=== PATIENT | female | born 1995 | race Caucasian/White ===

== ENCOUNTER 2022-11-01 14:06 | Outpatient (CLI) | payer BC, SELFPAY ==
[2022-11-01 17:42] LABS: Glucose* 101 mg/dL (60-115)
[2022-11-01 18:13] LABS: Thyroid Stimulating Hormone* 0.964 uIU/mL (0.270-4.20)
[2022-11-03 12:33] LABS: Prolactin 10.4 ng/mL (2.8-29.2)
[2022-11-04 07:35] LABS: 17-Hydroxyprogesterone HPLC 77.92 ng/dL (<=206.00)
[2022-11-08 07:09] LABS: Sex Hormone Binding Globulin 39 nmol/L (25-122); Testosterone Bioavailable 21.7 ng/dL (2.2-20.6); Testosterone, LC-MS/MS 52 ng/dL (9-55)
== END 2022-11-01 14:07 | disposition home or self-care (01) ==
PROVIDERS: Visit Provider Physician Assistant
DX: Z01.419 Encounter for gynecological examination (general) (routine) without abnormal findings (principal); N92.6 Irregular menstruation, unspecified; E66.01 Morbid (severe) obesity due to excess calories
CPT/HCPCS: 82947; 83498; 84146; 84270; 84402; 84403; 84443

== ENCOUNTER 2023-08-20 12:43 | Outpatient (CLI) | payer MEDICAID, SELFPAY ==
--- NOTE | 2023-08-20 13:00 | CRLHL7_ITS ---
For Patients: As a result of the Cures Act, medical imaging exams and procedure reports are released immediately into your electronic medical record. You may view this report before your referring provider. If you have questions, please contact your health care provider. INDICATION: First trimester scan, establish dates. TECHNIQUE: Real-time vega-scale imaging of the pelvis was performed. FINDINGS: Sonographic imaging demonstrates a single living intrauterine gestation. The embryo demonstrates a regular cardiac rate measuring 180 beats per minute. The embryo`s crown-rump length measurement of 2 cm corresponds to a gestational age of 8 weeks 4 days with a sonographic due date of 03/27/2024. There is a normal-appearing yolk sac. IMPRESSION: Normal first trimester OB ultrasound exam. Gestational age calculated at 8 weeks 4 days with a sonographic due date of 03/27/2024 . Dictated by Mima Kaplan MD @ 08/21/2023 6:52:38 AM (Electronically Signed)
== END 2023-08-20 12:44 | disposition home or self-care (01) ==
LOC: US 12:48
PROVIDERS: Visit Provider Registered Nurse
DX: Z34.91 Encounter for supervision of normal pregnancy, unspecified, first trimester (principal); Z3A.09 9 weeks gestation of pregnancy
CPT/HCPCS: 76817; 82565; 82570; 84156; 84450; 84460; 84520; 86703; 86803; 86850; 86900; 86901; 87086; 87340; 87491; 87591

== ENCOUNTER 2023-08-20 14:05 | Outpatient (CLI) | payer MEDICAID, SELFPAY ==
[2023-08-20 17:48] LABS: Chlamydia DNA Amplified* NOT DETECTED (No Detected); GC DNA Amplified* NOT DETECTED (No Detected)
== END 2023-08-20 14:06 | disposition home or self-care (01) ==
PROVIDERS: Visit Provider Registered Nurse
DX: Z34.90 Encounter for supervision of normal pregnancy, unspecified, unspecified trimester (principal)
CPT/HCPCS: 82565; 82570; 84156; 84450; 84460; 84520; 86592; 86703; 86762; 86787; 86803; 86850; 86900; 86901; 87086; 87340; 87491; 87591

== ENCOUNTER 2023-10-24 16:45 | Emergency (ER) | payer BC, SELFPAY ==
[2023-10-24 16:49] VITALS: BP 132/84; PULSE 106; RESP 18; TEMP 37.3; O2SAT 98; BMI 47.0
--- NOTE | 2023-10-24 17:08 | CRLHL7_ITS ---
For Patients: As a result of the Century Cures Act, medical imaging exams and procedure reports are released immediately into your electronic medical record. You may view this report before your referring provider. If you have questions, please contact your health care provider. CLINICAL HISTORY: Fall TECHNIQUE: Real time vega scale imaging of the fetus was performed as well as color Doppler and spectral Doppler analysis of the umbilical artery. FINDINGS: Sonographic imaging demonstrates a single living intrauterine gestation. Fetus demonstrates a regular cardiac rate of 139 beats per minute. Cervical length measures 3.7 cm Fetus has a vertex orientation . The placenta lies posterior without evidence of placenta previa. Amniotic fluid volume appears normal. single deepest vertical pocket: 3.4 cm. Rounded area in the anterior uterus could represent a possible contracture this could be followed up. IMPRESSION: 1. Single live intrauterine gestation. No perigestational hemorrhage seen. Rounded area in the anterior uterus could be due to a contracture. Dictated by Mima Kaplan MD @ 10/24/2023 7:03:56 PM (Electronically Signed)
--- NOTE | 2023-10-24 17:58 | ED.FALL ---
HPI - Fall General Date Seen: 10/24/23 Chief Complaint: Fall/Minor Trauma Stated Complaint: fell on stomach and is Time Seen by Provider: 10/24/23 17:35 Source: patient Mode of arrival: ambulatory Limitations: no limitations History of Present Illness HPI Narrative: Patient is a 28-year-old female presented to emergency department after a fall. She is at 18 weeks . She states she tripped over dog and fell onto brick ground. She 9 in her knees and her abdomen. Since then she has been having some mild abdominal pain and mild bilateral knee pain. She has been able walk. She has not had any abdominal bleeding but was concerned about the came in to be evaluated. Denies any other injuries. Related Data Home Medications Medication Instructions Recorded Confirmed fluticasone propionate 45 2 puff inhalation BID 11/01/22 10/24/23 mcg-salmeterol 21 mcg/actuation HFA inhaler (Advair HFA) docosahexaenoic acid 200 mg mg PO 08/20/23 10/13/23 capsule ( DHA) albuterol sulfate 90 mcg/actuation 1 inh inhalation ONCE PRN 09/15/23 10/24/23 aerosol inhaler aspirin 81 mg tablet,delayed 81 mg PO QDAY 10/13/23 10/24/23 release (Adult Aspirin Regimen) Allergies Allergy/AdvReac Type Severity Reaction Status Date / Time No Known Drug Allergies Allergy Verified 10/24/23 16:53 Review of Systems Narrative: Negative unless stated in HPI PFSH PFSH Medical History (Updated 10/24/23 @ 18:02 by Tyler Nichols DO) Irregular menstruation, unspecified ?N92.6 - Irregular menstruation, unspecified (ICD-10) Depression ?F32.A - Depression, unspecified (ICD-10) Anxiety ?F41.9 - Anxiety disorder, unspecified (ICD-10) History of abnormal cervical Pap smear ?Z87.42 - Personal history of other diseases of the female genital tract (ICD-10) Surgical History H/O wisdom tooth extraction ?K08.409 - Partial loss of teeth, unspecified cause, unspecified class (ICD-10) Family History Father Stroke High blood pressure Diabetes High cholesterol Family/Other Thyroid disease Family/Other FH: mental illness Mother Alcohol dependence 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 E cigarette use, 1 pack per week. Occasional alcohol use. Denies illicit drug use. No concerns with safety or abuse Smoking Status: Never smoker Do you use any of these nicotine containing products: None Second hand tobacco smoke exposure: No How often do you have a drink containing alcohol: never AUDIT-C Alcohol total score: 0 Non-prescribed substance use: denies use Little interest or pleasure in doing things: several days Feeling down, depressed, or hopeless: several days Exam Narrative: Exam Narrative: Const: Well-nourished, Well-developed, in mild distress Eyes: PERRL, no conjunctival injection, and symmetrical lids HENT: Atraumatic external nose and ears. Moist mucous membranes. GI: Nontender/Nondistended, No rebound or guarding. MSK:Extremities w/o deformity, Normal Active ROM. Very mild tenderness to bilateral knees to palpation Skin: Warm, Dry. No rashes or lesions. Neuro: Normal Muscle tone, No focal neurological deficits. Psych: Awake, Alert, & Oriented x3. Appropriate mood and affect. Const: Vital Signs, click to edit/add: Vital Signs - 24 hr 10/24/23 16:49 Temperature 99.2 F Pulse Rate [Pulse Oximeter] 106 H Respiratory Rate 18 Blood Pressure [Ri ght Upper Arm] 132/84 Pulse Oximetry 98 Oxygen Delivery Me thod Room Air Course Vital Signs Vital signs: Initial Vital Signs Temperature 99.2 F 10/24/23 16:49 Temperature Source Temporal Artery Scan 10/24/23 16:49 Pulse Rate 106 H 10/24/23 16:49 Respiratory Rate 18 10/24/23 16:49 Blood Pressure 132/84 10/24/23 16:49 Blood Pressure Mean 100 10/24/23 16:49 Blood Pressure Position Sitting 10/24/23 16:49 Pulse Oximetry 98 10/24/23 16:49 Oxygen Delivery Method Room Air 10/24/23 16:49 Vital Signs Temperature 99.2 F 10/24/23 16:49 Pulse Rate 106 H 10/24/23 16:49 Respiratory Rate 18 10/24/23 16:49 Blood Pressure 132/84 10/24/23 16:49 Pulse Oximetry 98 10/24/23 16:49 Oxygen Delivery Method Room Air 10/24/23 16:49 Temperature 99.2 F 10/24/23 16:49 Pulse Rate 106 H 10/24/23 16:49 Respiratory Rate 18 10/24/23 16:49 Blood Pressure 132/84 10/24/23 16:49 Pulse Oximetry 98 10/24/23 16:49 Oxygen Delivery Method Room Air 10/24/23 16:49 MDM - Fall MDM Narrative Medical decision making narrative: Patient is a 28-year-old female presenting emergency department after a fall. She was concerned about the fetus for she came to be evaluated. States that her knee pain is very mild and does not feel like she needs imaging for it at this time. We did do an ultrasound preliminary report shows no concerning abnormalities. A spasm was seen right for the patient's pain is. We spoke to OB and they state they do not do NST before 20 weeks gestation. Patient is otherwise doing well I spoke to evaluate for the official report versus discharge home and: Her of the results she would like to be discharged home. We will inform her if there are any concerning findings on the ultrasound report. She is agreeable to this plan. Ultrasound results returned after her discharge in a showed no concerning abnormalities. Imaging Data OB ultrasound: Radiologist's impression: 1. Single live intrauterine gestation. No perigestational hemorrhage seen. Rounded area in the anterior uterus could be due to a contracture. Dictated by Mima Kaplan MD @ 10/24/2023 7:03:56 PM Discharge Plan Discharge Clinical Impression: Abdominal pain Qualifiers: Abdominal location: unspecified location Qualified Code(s): R10.9 - Unspecified abdominal pain Patient Disposition: Home, Self-Care Condition: Stable Instructions: Abdominal Pain in (ED) Additional Instructions: If symptoms persist follow-up with your OB Gyne on Friday. We will call you with results of the ultrasound if it shows any concerning abnormalities. Return for new or worsening symptoms Prescriptions: No Action DHA 200 mg capsule PO aspirin [Adult Aspirin Regimen] 81 mg tablet,delayed release (DR/EC) 81 mg PO QDAY Advair HFA 45-21 mcg/actuation HFA aerosol inhaler 2 puff inhalation BID albuterol sulfate 90 mcg/actuation HFA aerosol inhaler 1 inh inhalation ONCE PRN Follow Up/Referrals: Provider,Not a Local [Primary Care Provider] - Stand Alone Forms: PartSimple Info Instructions
== END 2023-10-24 18:12 | disposition home or self-care (01) ==
PROVIDERS: Emergency Provider Student in an Organized Health Care Education/Training Program
DX: O26.891 Other specified pregnancy related conditions, first trimester (principal); R10.9 Unspecified abdominal pain; W18.09XA Striking against other object with subsequent fall, initial encounter
CPT/HCPCS: 76815; 99282; 99283; 99284

== ENCOUNTER 2024-01-05 12:46 | Outpatient (CLI) | payer BC, SELFPAY ==
--- NOTE | 2024-01-05 13:00 | CRLHL7_ITS ---
For Patients: As a result of the Century Cures Act, medical imaging exams and procedure reports are released immediately into your electronic medical record. You may view this report before your referring provider. If you have questions, please contact your health care provider. OB ULTRASOUND JENARO by LMP: 03/24/2024. GA: 28 w, 5 d. INDICATION: BPP and growth for obesity. CERVIX: Not visualized. POSITIONING: Vertex. AMNIOTIC FLUID: 6.2 cm. BIOPHYSICAL PROFILE: Total score: 8/8. Gross body movements: 2. tone: 2. Respiratory activity: 2. Amniotic fluid: 2. (SDP N: Increase 2 x 1 cm) PLACENTA: Technique: Transabdominal. PLACENTA POSITION: Posterior. DOPPLER: heart rate: 137 bpm. Biometry: BPD: 7.5 cm. 30 w, 2 d, 83 percent. HC: 28.2 cm. 30 w, 6 d, 82 percent. AC: 24.3 cm. 28 w, 4 d, 37 percent. FL: 5.2 cm. 27 w, 6 d, 15 percent. FL/AC ratio: 21.6 percent. HC/AC ratio: 1.16. EFW: 1260 g. Weight: 2 lbs, 12 oz. age by this US: 29 w, 3 d. JENARO by this US: 03/19/2024. Percentile by JENARO: 34 percent. IMPRESSION: 1. Single viable intrauterine . 2. Measurements are consistent with dates. 3. Normal biophysical profile score 8/8. Osmin Avila M.D. Body/Diagnostic Radiologist [email or web address] MANDEEP/sanjana allan/Dictated by: Osmin Avila MD @ 01/06/2024 1:23:00 PM (Electronically Signed)
== END 2024-01-05 12:47 | disposition home or self-care (01) ==
LOC: US 12:47
PROVIDERS: Visit Provider Advanced Practice Midwife
DX: O99.213 Obesity complicating pregnancy, third trimester (principal); E66.01 Morbid (severe) obesity due to excess calories; Z68.42 Body mass index [BMI] 45.0-49.9, adult; Z3A.28 28 weeks gestation of pregnancy
CPT/HCPCS: 76816; 76819; 86592

== ENCOUNTER 2024-02-09 16:34 | Outpatient (CLI) | payer BC, SELFPAY ==
[2024-02-09 16:40] VITALS: PULSE 97; O2SAT 97
[2024-02-09 16:45] VITALS: PULSE 99; O2SAT 97
[2024-02-09 16:50] VITALS: PULSE 100; O2SAT 96
[2024-02-09 17:28] VITALS: BP 129/70; PULSE 96
[2024-02-09 17:29] VITALS: RESP 18; TEMP 36.8
--- NOTE | 2024-02-09 18:38 | PC.OBNST ---
NST Note NST Note Start: 02/09/24 17:01 Freq: ONCE Status: Active Protocol: Document 02/09/24 18:32 ALEJANDRA (Rec: 02/09/24 18:38 Barry [id number]) NST Note 1 Para (# of births) 0 EDC 03/24/24 Gestational Age In Weeks & Days 33 Weeks & 5 Days Patient Presented with Complaint(s) of Decreased movement Reactive Yes Appropriate for Gestational Age Yes RN Ruslan Dutton RN Date 02/09/24 Reactive Yes Appropriate for Gestational Age Yes MARILUZ Dukes RN Date 02/09/24 OB NST charge Yes Complete NST Note via Write Note Yes The provider's electronic signature indicates the NST is reactive/appropriate for gestational age. *Note to provider: If an addendum is required, open the patient's chart and click on the note under the Nurse/Allied Health tab.
== END 2024-02-09 17:50 | disposition home or self-care (01) ==
LOC: US 16:37 → OB 16:39
PROVIDERS: Visit Provider Advanced Practice Midwife
DX: O36.8130 Decreased fetal movements, third trimester, not applicable or unspecified (principal); Z3A.33 33 weeks gestation of pregnancy
CPT/HCPCS: 59025; G0463

== ENCOUNTER 2024-02-16 10:17 | Outpatient (CLI) | payer BC, SELFPAY ==
--- NOTE | 2024-02-16 10:30 | US_ITS ---
Patient: LIZZIE WOOD Facility:?[facility] Patient ID:?[id number] Site Patient ID:?[id number]. Site :?[id number] Study:?US-OB Pelvis BPP W GROWTH-02/16/2024 10:56:55 AM Ordering Physician:?PHAM MADDOX Final Report: INDICATION: Third trimester scan, evaluate growth. COMPARISON: 01/05/2024 TECHNIQUE: Real time vega scale imaging of the fetus was performed. FINDINGS: Sonographic imaging demonstrates a single living intrauterine gestation. Fetus demonstrates a regular cardiac rate of 144 beats per minute. Fetus has a vertex position. The placenta lies posteriorly. Amniotic fluid volume appears normal and there is a single deepest vertical pocket: 5.7 cm. The estimated weight is 2754gm which lies at the 75th %. On the prior OB ultrasound exam dated 01/05/2024 the estimated weight was at the 34th%. BPD 94th percentile. HC 76th percentile. AC 79th percentile. FL 53rd percentile. The HC/AC ratio measures 1.03 range (0.92-1.08). IMPRESSION: Sonographic gestational age 36 weeks 1 day and sonographic due date 03/14/2024. Sonographic age 10 days ahead of the clinical age. Estimated weight at 75th percentile. Abdominal circumference 79th percentile. Dictated by Raghavendra Gramajo MD @ 02/16/2024 11:08:37 AM Signed by:?Raghavendra Gramajo MD @02/16/2024 11:08:37 AM (Electronic Signature)
== END 2024-02-16 10:18 | disposition home or self-care (01) ==
LOC: US 10:17
PROVIDERS: Visit Provider Advanced Practice Midwife
DX: Z34.93 Encounter for supervision of normal pregnancy, unspecified, third trimester (principal); Z3A.36 36 weeks gestation of pregnancy
CPT/HCPCS: 76816; 76819

== ENCOUNTER 2024-03-01 15:17 | Outpatient (CLI) | payer BC, SELFPAY ==
[2024-03-02 11:59] LABS: Strep B DNA Probe POSITIVE (Negative)
[2024-03-02 12:03] LABS: Strep B Susceptibility Needed? No
== END 2024-03-01 15:18 | disposition home or self-care (01) ==
LOC: NFLDREF 15:19
PROVIDERS: Visit Provider Advanced Practice Midwife
DX: Z34.03 Encounter for supervision of normal first pregnancy, third trimester (principal)
CPT/HCPCS: 87081; 87653

== ENCOUNTER 2024-03-02 17:10 | Outpatient (CLI) | payer BC, SELFPAY ==
[2024-03-02 17:22] VITALS: PULSE 98; O2SAT 97
[2024-03-02 17:27] VITALS: PULSE 99; O2SAT 98
[2024-03-02 17:32] VITALS: PULSE 99; O2SAT 97
[2024-03-02 17:37] VITALS: PULSE 101; O2SAT 98
[2024-03-02 17:41] VITALS: BP 126/80; PULSE 101; RESP 17; TEMP 36.6
[2024-03-02 18:27] LABS: Appearance Urine Clear (Clear); Bilirubin Urine Negative (Negative); Blood Urine Negative (Negative); Color Urine Yellow (Yellow); Glucose Urine Negative (Negative); Ketones Urine Negative (Negative); Leukocyte Esterase Urine Negative (Negative); Nitrite Urine Negative (Negative); Protein Urine Negative (Negative); Specific Gravity Urine <= 1.005 (1.000-1.030); Urobilinogen Urine 0.2 (0.2-1.0); pH Urine 6.5 (5.0-8.5)
--- NOTE | 2024-03-02 19:32 | PC.OBNST ---
NST Note NST Note Start: 03/02/24 17:17 Freq: ONCE Status: Active Protocol: Document 03/02/24 19:30 AVL (Rec: 03/02/24 19:31 AVL [id number]) NST Note 1 Para (# of births) 0 EDC 03/24/24 Gestational Age In Weeks & Days 36 Weeks & 6 Days Patient Presented with Complaint(s) of Contractions/cramping Reactive Yes Appropriate for Gestational Age Yes MARILUZ Chaudhari Rn Date 03/02/24 Reactive Yes Appropriate for Gestational Age Yes MARILUZ weiner RN Date 03/02/24 OB NST charge Yes Complete NST Note via Write Note Yes The provider's electronic signature indicates the NST is reactive/appropriate for gestational age. *Note to provider: If an addendum is required, open the patient's chart and click on the note under the Nurse/Allied Health tab.
== END 2024-03-02 18:51 | disposition home or self-care (01) ==
LOC: OB OUT 17:15 → OB 17:16
PROVIDERS: Visit Provider Advanced Practice Midwife
DX: Z39.1 Encounter for care and examination of lactating mother (principal)
CPT/HCPCS: 59025; 81003; G0463

== ENCOUNTER 2024-03-08 11:11 | Outpatient (CLI) | payer BC, SELFPAY ==
[2024-03-08] VITALS (17 sets, daily range): BP systolic 113–146; BP diastolic 64–97; PULSE 96–117; RESP 16; TEMP 36.7; O2SAT 97
[2024-03-08 15:22] LABS: Hematocrit 34.4 % (33.0-51.0); Hemoglobin* 11.1 gm/dL (12.0-16.0); Mean Corpuscular HGB Conc 32 gm/dL (32-36); Mean Corpuscular Hemoglobin 28 pg (26-34); Mean Corpuscular Volume 86 fL (80-100); Platelet Count* 328 K/uL (140-440); Red Blood Count 3.98 m/uL (4.00-5.20); White Blood Count* 13.27 K/uL (4.50-11.00)
[2024-03-08 15:27] LABS: Slide Review Reflex No
[2024-03-08 16:04] LABS: Creatinine* 0.5 mg/dL (0.5-1.5); Estimated Glomerular Filt Rate 129 ml/min
[2024-03-08 16:05] LABS: Alanine Aminotransferase* 100 U/L (4-35); Aspartate Amino Transferase* 59 U/L (12-35); Blood Urea Nitrogen* 11 mg/dL (5-24)
[2024-03-08 16:11] LABS: Total Protein Urine 13 mg/dL
--- NOTE | 2024-03-08 16:11 | PC.OBNST ---
NST Note NST Note Start: 03/08/24 11:49 Freq: ONCE Status: Active Protocol: Document 03/08/24 16:08 FJZ (Rec: 03/08/24 16:11 RENUKA [id number]) NST Note 1 Para (# of births) 0 EDC 03/24/24 Gestational Age In Weeks & Days 37 Weeks & 5 Days High Risk Factors High Blood Pressure - Gestational Patient Presented with Complaint(s) of Other Other Complaints Sent from clinic for blood pressure monitoring. Reactive Yes Appropriate for Gestational Age Yes RN Anisha Nguyễn RN Date 03/08/24 Reactive Yes Appropriate for Gestational Age Yes MARILUZ August RN Date 03/08/24 OB NST charge Yes Complete NST Note via Write Note Yes The provider's electronic signature indicates the NST is reactive/appropriate for gestational age. *Note to provider: If an addendum is required, open the patient's chart and click on the note under the Nurse/Allied Health tab.
[2024-03-08 16:12] LABS: Creatinine Urine 96.1 mg/dL
--- NOTE | 2024-04-10 11:25 | PC.OBNST ---
NST Note NST Note Start: 03/08/24 11:49 Freq: ONCE Status: Discharge Protocol: Document 03/08/24 16:08 RENUKA (Rec: 03/08/24 16:11 RENUKA [id number]) NST Note 1 Para (# of births) 0 EDC 03/24/24 Gestational Age In Weeks & Days 37 Weeks & 5 Days High Risk Factors High Blood Pressure - Gestational Patient Presented with Complaint(s) of Other Other Complaints Sent from clinic for blood pressure monitoring. Reactive Yes Appropriate for Gestational Age Yes RN Anisha Nguyễn RN Date 03/08/24 Reactive Yes Appropriate for Gestational Age Yes RN Lizette August RN Date 03/08/24 OB NST charge Yes Complete NST Note via Write Note Yes The provider's electronic signature indicates the NST is reactive/appropriate for gestational age. *Note to provider: If an addendum is required, open the patient's chart and click on the note under the Nurse/Allied Health tab.
== END 2024-03-08 15:30 | disposition home or self-care (01) ==
LOC: OB OUT 11:13 → OB 11:13
PROVIDERS: Visit Provider Advanced Practice Midwife
DX: O13.3 Gestational [pregnancy-induced] hypertension without significant proteinuria, third trimester (principal); Z3A.37 37 weeks gestation of pregnancy
CPT/HCPCS: 36415; 59025; 82565; 82570; 84156; 84450; 84460; 84520; 85027; G0463

== ENCOUNTER 2024-03-08 17:33 | Inpatient (IN) | payer BC, SELFPAY ==
[2024-03-08] VITALS (13 sets, daily range): BP systolic 114–138; BP diastolic 60–86; PULSE 93–120; RESP 18; TEMP 36.6–36.9; O2SAT 92–97; BMI 50.0
[2024-03-08] MEDS: LACTATED RINGERS 1000 ML 1,000 ML 75 ML IV (18:10)
[2024-03-08] MEDS: MAGNESIUM IV 4 GM/100 ML PIGGYBACK IVPB (18:11)
--- NOTE | 2024-03-08 18:25 | P.LDBA_ITS ---
Subjective History of Present Illness Narrative: Hayley is a 28 yo at 37 5/7 weeks gestation being admitted to Labor and Delivery for induction of labor for Gestational Hypertension with severe features based on elevated liver enzymes. Her full history and physical was dictated by Denia Celestin CNM on 03/01/2024. Please see this for details. She was seen in clinic earlier today with elevated BP then sent to Labor and Delivery for blood pressure monitoring. They initially were normotensive but just at 4 hours she had a subsequent elevated blood pressure. Labs were drawn at this time but patient strongly desired to go home and grab her stuff and her partner before IOL. I was agreeable with this plan. Labs resulted after she had already discharged from triage, ALT was 100. She had previous baseline labs drawn at her NOB. Reviewed plan of care and labs with Dr. Zhang. Specific Issues/Plans G 1 Boyfriend: Gómez - has 3 year old son H&P done by Aydee Celestin CNM on 03/01/24 1. Obesity. BMI 46.9. Hemoglobin A1c: 5.4 Recommend nutrition referral. Patient declines Anesthesia referral: ordered MD consult: Seen MD at 20 weeks Level 2 ultrasound: 11/03: completed w/ [facility]: Unremarkable however difficult view of face/heart; limited US follow-up w/ MFM in 4 weeks, EFW 71%ile Follow up level II for missing views 12/08/22, WNL, vtx, no previa, SDP 4.4, 3 vessel cord Early GDM testing between 16 and 20 weeks: scheduled 11/10 - WNL at 87mg/dL Weekly BPP and/or NST starting at 32 weeks ([facility] recommendations) 02/15 EFW 75% BPP 07/08 [facility] recommends Growth US at 28 (34%) and 34 weeks and once weekly testing starting at 34 weeks: planning 2. Elevated blood pressure readings at NOB, cannot exclude possibility of Chronic. Denies history of hypertension. Reports she was very anxious at this visit. No documented history of elevated BP or HTN on previous health documents available. Baseline pre E labs WNL. 3. History of anxiety and PTSD. Stable at 1st OB. States she took multiple medications in the past for anxiety but has been off of all of them for several years. Has an emotional support dog which is very helpful for her. Is not currently seeing a therapist and is not interested in doing so. 4. Asthma. Twice daily Advair Diskus. Rare albuterol use per patient. 5. Headaches, consider Reglan if needed but declines at this time 6. GBS + Recommend antibiotics in labor COVID: Not vaccinated. Recommended. Flu: declines TDAP: declined 32wk Mental Health: 02/01/2027 OB - Problem Based A/P Additional Plan (1) Encounter for induction of labor: Status: Acute (2) Gestational hypertension: Problem details: With severe features Status: Acute (3) 37 weeks gestation of : Status: Acute (4) Morbid obesity with BMI of 45.0-49.9, adult: Status: Acute (5) Asthma: Status: Acute Plan ASSESSMENT:? 28 at 37 5/7 weeks gestation? complicated by:?Prepregnancy BMI 46.9, Elevated BP at NOB with WNL pre-e baseline labs, Hx of Anxiety and PTSD, Asthma, Headaches Labor type: Induced, not yet in labor? Category 1 FHR pattern.?? GHTN with Severe Features? GBS Positive? ? PLAN:? 1. Routine intrapartum cares as ordered. Reviewed IOL and plans for management. Discussed use of Cytotec, Cervidil, cook catheter, or pitocin. She desires to avoid cook if possible. Plan cytotec for tonight. 2. Monitoring per policy, continuous? tracing. Monitor vitals per protocol. Continue to monitor need for medication management of BP. 3. Candidate for analgesia of choice if desired. Patient encouraged to reposition and ambulate to promote physiologic labor and while able 4. Reviewed plan of care and patient status with Dr. Zhang. Based on labs, will initiate magnesium sulfate 4g bolus, 2g per hour with labs every 6 hours. OB and CNM will comanage patient during labor. Dr. Zhang will assume care of the GHTN with severe features and magnesium, CNM will manage labor. Patient is aware that we will both be a part of her team. Post-delivery, CNM care will be relinquished to MD until discharge. 5. GBS prophylaxis initiated for GBS positive status. Will treat with antibiotics per protocol, recommend initiation at onset of active labor or start of pitocin. 6. Anticipate ? Delivery/Labor/Induction Plan Plan: induction Induction method: per misoprostol protocol OB Exam Physical Exam Vital signs: Pulse BP 109 H 130/86 03/08/24 18:01 03/08/24 18:01 Narrative: Vitals Reviewed Constitutional:? Alert and oriented x3 HEENT:? Normocephalic, atraumatic Neck:? Supple Lungs:? Clear to auscultation bilaterally Heart:? Regular rate and rhythm, no murmur, rub or gallop Abdomen:? Soft, nontender, and gravid. Vertex by Tramaine's, confirmed with cervical exam. Extremities:? No edema or erythema Cervix: 1 cm/70%/-1 station/vertex NST: 135 bpm/moderate variability/15x15 accelerations/no decelerations/no contractions Detailed Labor and Delivery Exam Patient Gravid: Yes Cervix position: mid Consistency: medium Fetus (Single) Station: -1 Amniotic Membrane Status: intact
[2024-03-08] MEDS: MAGNESIUM Infusion 40 GM/1,000 ML IV.SOLN IVPB (18:42)
[2024-03-08] MEDS: miSOPROStoL 25 MCG/0.25 TABLET VAGINAL ×2 (19:30→23:34)
[2024-03-08 21:06] LABS: Hematocrit 35.6 % (33.0-51.0); Hemoglobin* 11.2 gm/dL (12.0-16.0); Mean Corpuscular HGB Conc 32 gm/dL (32-36); Mean Corpuscular Hemoglobin 27 pg (26-34); Mean Corpuscular Volume 86 fL (80-100); Platelet Count* 356 K/uL (140-440); Red Blood Count 4.13 m/uL (4.00-5.20); White Blood Count* 14.55 K/uL (4.50-11.00)
[2024-03-08 21:08] LABS: Slide Review Reflex No
[2024-03-08 21:23] LABS: Alanine Aminotransferase* 107 U/L (4-35); Aspartate Amino Transferase* 58 U/L (12-35); Blood Urea Nitrogen* 11 mg/dL (5-24); Creatinine* 0.5 mg/dL (0.5-1.5); Estimated Glomerular Filt Rate 129 ml/min
[2024-03-08] MEDS: hydrOXYzine pamoate 25 MG CAPSULE 100 MG PO (21:23)
[2024-03-08] MEDS: MORPHINE 10 MG/ML inj IM (21:23)
--- NOTE | 2024-03-08 23:37 | P.OBCN_ITS ---
OB - CN: HPI Date of Consult Time Seen by Provider: 19:30 Date Seen: 03/08/24 Patient: [facility] Patient Consult date: 03/08/24 Requesting Physician: Sandy Coe CNM Primary Care Provider: Not a Local Provider Consult Narrative Reason for consult: gestational hypertension (With severe features ) Narrative: The patient is a 28 year old G1 P 0 at 37.5 weeks gestation that was admitted to the Center on 03/08/24 for gestational hypertension with severe features. Denies any persistent headache, vision changes, SOB, right upper quadrant/epigastric pain, or rapidly expanding edema. Active movement. Denies LOF, vaginal bleeding or abnormal vaginal disch arge. Occasional contractions. Discussed with patient the diagnosis her hypertensive diagnosis with severe feature. Her severe features based on elevated LFTs twice the upper limit of normal (AST 59 and ALT 100). MD will monitor and manage her hypertensive diagnosis but TRENT will manage her labor as of now. Patient appreciates this. Plan is for cervical ripening with misoprostol. Physical exam: General: No acute distress Psych: Alert and oriented x4, full affect HEENT: Normocephalic, atraumatic Lungs: Unlabored breathing Abdomen: Gravid. soft, no tenderness, rebound, or guarding. Skin: No lesions or rashes Lower extremities: No edema or erythema Pelvic exam: Deferred Pre-Eclampsia with severe features ? Based on mild range in blood pressure with ALT and AST twice the upper limit of normal ? BPs 110-150/60-90s ? Symptoms : Asymptomatic ? Magnesium: On magnesium sulfate for seizure prophylaxis ? IV antihypertensives: Currently on indicated ? Pre-eclampsia labs on 03/08/2024: Hgb 11.1 Plt 328 Cr 0.5 ALT 100 AST 59 ? Will get Q6H pre-eclampsia labs History History 1 Elective abortions Para 0 Spontaneous abortions Hx # Term Pregnancies Ectopic pregnancies Hx # Pregnancies Multiple births Number of Living Children 0 Labs GBS status: positive OB Labs: Lab Assessment Start: 03/08/24 17:36 Freq: ONCE Status: Complete Protocol: PC.OBGBS Activity Type Activity Date Activity User E-sign Co-sign Detail Recorded Client Recorded Date Recorded By Document 03/08/24 19:49 KHALIDA [id number] 03/08/24 19:50 KHALIDA 03/08/24 19:49 Lab Assessment GBS Status positive GBS Additional Criteria None Is Patient Allergic to Penicillin? No Treatment Required OK Are Labs Available Yes Maternal Blood Type O Maternal RH Factor Positive Evaluate Maternal Rubella Immune Status Immune Hepatitis B Surface Antigen Negative Maternal HIV Status Negative Maternal Syphillis (RPR) Status Negative [facility] Medical History Irregular menstruation, unspecified ?N92.6 - Irregular menstruation, unspecified (ICD-10) Depression ?F32.A - Depression, unspecified (ICD-10) Anxiety ?F41.9 - Anxiety disorder, unspecified (ICD-10) History of abnormal cervical Pap smear ?Z87.42 - Personal history of other diseases of the female genital tract (ICD-10) Surgical History H/O wisdom tooth extraction ?K08.409 - Partial loss of teeth, unspecified cause, unspecified class (ICD- 10) Family History Father Stroke High blood pressure Diabetes High cholesterol Family/Other Thyroid disease Family/Other FH: mental illness Mother Alcohol dependence 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 E cigarette use, 1 pack per week. Occasional alcohol use. Denies illicit drug use. No concerns with safety or abuse What is your current living situation?: I presently have a place to live Problems where you live: no known problems In the past 12 months, utilities in danger of being shut off: no In past 12 months, lack of transportation kept you from medical appts, meetings, work, or getting things needed for daily living: no In the past 12 mos, have been you worried that your food would run out before you had money to buy more?: never true In the past 12 mos, the food you bought just didn't last and you didn't have money to buy more?: never true Smoking Status: Current every day smoker Do you use any of these nicotine containing products: None Second hand tobacco smoke exposure: No How often do you have a drink containing alcohol: never AUDIT-C Alcohol total score: 0 Non-prescribed substance use: denies use How often does anyone, including family, friends and others, physically hurt you : never How often does anyone, including family, friends and others, insult or talk down to you: never How often does anyone, including family, friends and others, threaten you with harm: never How often does anyone, including family, friends and others, scream or curse at you: never Little interest or pleasure in doing things: not at all Feeling down, depressed, or hopeless: not at all Meds Home Medications and Allergies Home Medications Medication Instructions Recorded Confirmed Type fluticasone propionate 45 2 puff inhalation BID 11/01/22 03/08/24 History mcg-salmeterol 21 mcg/actuation HFA inhaler (Advair HFA) docosahexaenoic acid 200 mg 200 mg PO DAILY 08/20/23 03/08/24 History capsule ( DHA) albuterol sulfate 90 mcg/actuation 1 inh inhalation ONCE PRN 09/15/23 03/08/24 History aerosol inhaler aspirin 81 mg tablet,delayed 81 mg PO QDAY 10/13/23 03/08/24 History release (Adult Aspirin Regimen) Allergies Allergy/AdvReac Type Severity Reaction Status Date / Time No Known Drug Allergies Allergy Verified 03/08/24 19:51 OB - H&P: Exam Physical Exam: Vital signs: Temp Pulse Resp BP Pulse Ox 97.9 F 93 18 114/60 93 03/08/24 22:28 03/08/24 23:28 03/08/24 22:28 03/08/24 23:28 03/08/24 22:38 OB - Results Labs Labs: Short CBC 03/08/24 Range/Units 21:00 WBC 14.55 H (4.50-11.00) K/uL Hgb 11.2 L (12.0-16.0) gm/dL Hct 35.6 (33.0-51.0) % Plt Count 356 (140-440) K/uL BMP 03/08/24 21:00 BUN 11 Creatinine 0.5 Liver Function 03/08/24 Range/Units 21:00 AST 58 H (12-35) U/L ALT 107 H (4-35) U/L OB - CN: A/P Assessment and Plan (1) Encounter for induction of labor: Status: Acute (2) Gestational hypertension: Problem details: With severe features Status: Acute (3) 37 weeks gestation of : Status: Acute (4) Morbid obesity with BMI of 45.0-49.9, adult: Status: Acute (5) Asthma: Status: Acute
[2024-03-09] VITALS (54 sets, daily range): BP systolic 102–144; BP diastolic 52–83; PULSE 76–98; RESP 16–18; TEMP 36.5–37; O2SAT 93–98
[2024-03-09 03:28] LABS: Hemoglobin* 10.5 gm/dL (12.0-16.0); Mean Corpuscular HGB Conc 32 gm/dL (32-36); Mean Corpuscular Hemoglobin 28 pg (26-34); Mean Corpuscular Volume 86 fL (80-100); Platelet Count* 299 K/uL (140-440); Red Blood Count 3.82 m/uL (4.00-5.20); White Blood Count* 13.09 K/uL (4.50-11.00)
[2024-03-09] MEDS: miSOPROStoL 25 MCG/0.25 TABLET VAGINAL ×2 (03:34→07:21)
[2024-03-09 03:35] LABS: Slide Review Reflex No
[2024-03-09 03:51] LABS: Alanine Aminotransferase* 99 U/L (4-35); Aspartate Amino Transferase* 57 U/L (12-35); Blood Urea Nitrogen* 10 mg/dL (5-24); Creatinine* 0.5 mg/dL (0.5-1.5); Est. Creatinine Clearance* 142.07; Estimated Glomerular Filt Rate 129 ml/min
[2024-03-09 04:02] LABS: Magnesium* 4.6 mg/dL (1.5-2.6)
[2024-03-09] MEDS: LACTATED RINGERS 1000 ML 1,000 ML 75 ML IV ×2 (06:56→20:03)
--- NOTE | 2024-03-09 07:23 | PM.OBPNL ---
Subjective Date Seen: 03/09/24 Narrative: ?Hayley is coping well with labor pain/contractions. ?Gómez is with her for support. ?She is due for a 4th dose of Cytotec this morning. SVE this morning was /-2 soft midposition. Reviewed options and recommended the 4th dose to be given now. Reevaluate in 4 hours, briefly discussed a Cook catheter as next steps if she is unchanged in 4 hours. She was able to sleep last night between cares and feels rested this morning. ? Objective Exam: VSS, afebrile General Appearance:? Calm, cooperative. ?No acute distress. ? Psychiatric Exam: Alert and oriented, appropriate affect Abdomen: Gravid Ctx: ?Q 3-5 min apart. ?Mild ? difficult to monitor at times, due to body habitus. FHTs: ?Baseline: 130. ? ? Variability: moderate. ?Accels: +. ? ?Decels: ?-. SVE: /-2 soft midposition Membranes: Intact ? Vital Signs: Last Vital Signs Temp 98.2 F 03/09/24 05:46 Pulse 77 03/09/24 06:28 Resp 18 03/09/24 05:46 BP 114/59 L 03/09/24 06:28 Pulse Ox 95 03/09/24 04:34 Plan Plan: Assessment:?? at 37.6w gestation?? GBS positive Patient is coping well with challenges of labor.?? Labor type: Induced, not yet in labor? Category 1 FHR pattern.? complicated by: Prepregnancy BMI 46.9, Elevated BP at NOB with WNL pre-e baseline labs, Hx of Anxiety and PTSD, Asthma, Headaches Labor complicated by: ?? GHTN with Severe Features? GBS Positive? Plan:?? Routine intrapartum cares as ordered. Reviewed IOL and plans for management. Plan for reevaluation in approximately 4 hours, dose number 4 of Cytotec now. Antibiotic prophylaxis treatment per protocol, recommend initiation at onset of active labor or start of pitocin. Continue with routine intrapartum cares as ordered.?? OB and CNM will comanage patient during labor. Dr. Godinez managing care of the GHTN with severe features and magnesium, CNM will manage labor. Patient is aware that we will both be a part of her team. Post-delivery, CNM care will be relinquished to MD until discharge. Magnesium sulfate IV infusing at 2g per hour, labs every 6 hours. Monitoring per policy, continuous? tracing. Monitor vitals per protocol. Continue to monitor need for medication management of BP. Patient encouraged to move and change positions to promote physiologic labor and .?? Nonpharmacologic comfort measures per patient preference. Candidate for analgesia of choice if desired. Anticipate progress to NVD. ?
[2024-03-09 09:21] LABS: Hematocrit 34.3 % (33.0-51.0); Mean Corpuscular HGB Conc 32 gm/dL (32-36); Mean Corpuscular Hemoglobin 28 pg (26-34); Mean Corpuscular Volume 86 fL (80-100); Platelet Count* 302 K/uL (140-440); Red Blood Count 3.98 m/uL (4.00-5.20)
[2024-03-09 09:22] LABS: Slide Review Reflex No
[2024-03-09 09:43] LABS: Aspartate Amino Transferase* 58 U/L (12-35); Creatinine* 0.4 mg/dL (0.5-1.5); Est. Creatinine Clearance* 177.59; Estimated Glomerular Filt Rate 136 ml/min
[2024-03-09 09:44] LABS: Alanine Aminotransferase* 101 U/L (4-35); Blood Urea Nitrogen* 9 mg/dL (5-24)
--- NOTE | 2024-03-09 12:10 | PM.OBPNL ---
Subjective Date Seen: 03/09/24 Narrative: ?Hayley is coping well with labor pain/contractions. ?Gómez is with her for support. ?Her plan for labor is Nitrous. Cervix is changed from 1 to 1.5 cm. She is comfortable and not feeling contractions at this time. Reviewed R/B/A of an additional dose of Cytotec, placing a Cook with or with Pitocin or IV Pitocin only. Hayley would like to do the Cook and then add Pitocin later. She would like to use nitrous for placement. Objective Exam: VSS, afebrile General Appearance:? Calm, cooperative. ?No acute distress. ? Psychiatric Exam: Alert and oriented, appropriate affect Abdomen: Gravid Ctx: ?Q 5-10 min apart. ?Mild ? ? FHTs: ?Baseline: 130. ? ? Variability: moderate, has some periods of minimal for approx. 20 minutes consistent with sleep cycle. ?Accels: +. ? ?Decels: ?-. SVE: 1.5/70/-1 Membranes: Intact ? Vital Signs: Last Vital Signs Temp 97.8 F 03/09/24 09:30 Pulse 82 03/09/24 11:30 Resp 17 03/09/24 09:30 BP 135/78 03/09/24 11:30 Pulse Ox 94 03/09/24 07:33 Assessment Station: -1 Plan Plan: Assessment:?? at 37.6w gestation?? GBS Positive Patient is coping well with challenges of labor.?? Labor type: Induced, Early labor Cook placed with nitrous used during placement. ? Category 1 FHR pattern.? complicated by: Prepregnancy BMI 46.9, Elevated BP at NOB with WNL pre-e baseline labs, Hx of Anxiety and PTSD, Asthma, Headaches Labor complicated by: ?? GHTN with Severe Features? GBS Positive? Plan:?? Routine intrapartum cares as ordered. Reviewed induction methods including Cytotec, Cook catheter, and IV Pitocin. Pt elected to have Cook placed, will consider IV Pitocin in a few hours or when Cook comes out. Antibiotic prophylaxis treatment per protocol, recommend initiation at onset of active labor or start of Pitocin. Continue with routine intrapartum cares as ordered.?? OB and CNM will comanage patient during labor. Dr. Godinez managing care of the GHTN with severe features and magnesium, CNM will manage labor. Patient is aware that we will both be a part of her team. Post-delivery, CNM care will be relinquished to MD until discharge. Magnesium sulfate IV infusing at 2g per hour, labs every 6 hours. Monitoring per policy, continuous? tracing. Monitor vitals per protocol. Continue to monitor need for medication management of BP. Most recent BP 144/80 was taken not long after Cook placement. Patient encouraged to move and change positions to promote physiologic labor and .?? Nonpharmacologic comfort measures per patient preference. Candidate for analgesia of choice if desired. Anticipate progress to NVD ?
[2024-03-09] MEDS: fentaNYL 100 MCG/2 ML inj IVP (13:47)
[2024-03-09] MEDS: AMPICILLIN 2 GM in 0.9 % SODIUM CHLORIDE Mini-bag 100 ML IVPB (13:51)
[2024-03-09] MEDS: MAGNESIUM Infusion 40 GM/1,000 ML IV.SOLN IVPB (13:58)
[2024-03-09] MEDS: OXYTOCIN 30 unit/500 ML in NS 30 UNIT/500 ML BAG IVPB (14:51)
[2024-03-09 15:18] LABS: Hemoglobin* 10.8 gm/dL (12.0-16.0); Mean Corpuscular HGB Conc 32 gm/dL (32-36); Mean Corpuscular Hemoglobin 27 pg (26-34); Mean Corpuscular Volume 86 fL (80-100); Platelet Count* 324 K/uL (140-440); Red Blood Count 3.94 m/uL (4.00-5.20); White Blood Count* 14.69 K/uL (4.50-11.00)
[2024-03-09 15:19] LABS: Slide Review Reflex No
[2024-03-09 15:33] LABS: Aspartate Amino Transferase* 61 U/L (12-35); Creatinine* 0.5 mg/dL (0.5-1.5); Est. Creatinine Clearance* 142.07; Estimated Glomerular Filt Rate 129 ml/min
[2024-03-09 15:34] LABS: Alanine Aminotransferase* 105 U/L (4-35); Blood Urea Nitrogen* 8 mg/dL (5-24)
[2024-03-09 15:36] LABS: Magnesium* 5.4 mg/dL (1.5-2.6)
--- NOTE | 2024-03-09 17:51 | PM.OBPNL ---
Subjective Date Seen: 03/09/24 Narrative: ?Hayley is coping well with labor pain/contractions. ?Gómez is with her for support. ?She is not feeling much with her contractions at this time. Cook remains in place and she has been started on IV Pitocin for induction. No leaking of fluid or bleeding. ? Objective Exam: VSS, afebrile General Appearance:? Calm, cooperative. ?No acute distress. ? Psychiatric Exam: Alert and oriented, appropriate affect Abdomen: Gravid Ctx: ?Q 2-3 min apart. ?Mild ? ? FHTs: ?Baseline: 135. ? ? Variability: moderate. ?Accels: +. ? ?Decels -. SVE: deferred at this time Membranes: Intact ? Vital Signs: Last Vital Signs Temp 97.7 F 03/09/24 17:33 Pulse 92 03/09/24 17:49 Resp 16 03/09/24 17:33 BP 123/64 03/09/24 17:49 Pulse Ox 94 03/09/24 17:50 O2 Del Method Room Air 03/09/24 17:33 Contractions Pitocin Rate (mU/min): 6 Assessment Assessment: induction ongoing Station: -1 Status: Category l Plan Plan: Assessment:?? at 37.6 gestation?? GBS positive Patient is coping well with challenges of labor.?? Labor type: Induced, Early labor? Category 1 FHR pattern.? Prepregnancy BMI 46.9, Elevated BP at NOB with WNL pre-e baseline labs, Hx of Anxiety and PTSD, Asthma, Headaches Labor complicated by: ?? GHTN with Severe Features? GBS Positive? Plan:?? Routine intrapartum cares as ordered. Cook catheter in place, IV Pitocin infusing per protocol. Antibiotic prophylaxis treatment per protocol, recommend initiation at onset of active labor or start of Pitocin. Continue with routine intrapartum cares as ordered.?? OB and CNM will comanage patient during labor. Dr. Godinez managing care of the GHTN with severe features and magnesium, CNM will manage labor. Patient is aware that we will both be a part of her team. Post-delivery, CNM care will be relinquished to MD until discharge. Magnesium sulfate IV infusing at 2g per hour, labs every 6 hours. Monitoring per policy, continuous? tracing. Monitor vitals per protocol. Continue to monitor need for medication management of BP. Patient encouraged to move and change positions to promote physiologic labor and .?? Nonpharmacologic comfort measures per patient preference. Candidate for analgesia of choice if desired. Anticipate progress to NVD ? ?
[2024-03-09] MEDS: AMPICILLIN 1 GM in 0.9 % SODIUM CHLORIDE Mini-bag 100 ML IVPB ×2 (18:14→21:26)
[2024-03-09 21:34] LABS: Hematocrit 33.5 % (33.0-51.0); Hemoglobin* 10.8 gm/dL (12.0-16.0); Mean Corpuscular HGB Conc 32 gm/dL (32-36); Mean Corpuscular Hemoglobin 28 pg (26-34); Mean Corpuscular Volume 85 fL (80-100); Platelet Count* 321 K/uL (140-440); Red Blood Count 3.93 m/uL (4.00-5.20); White Blood Count* 15.64 K/uL (4.50-11.00)
[2024-03-09 21:36] LABS: Slide Review Reflex No
[2024-03-09 22:04] LABS: Aspartate Amino Transferase* 70 U/L (12-35); Creatinine* 0.4 mg/dL (0.5-1.5); Est. Creatinine Clearance* 177.59; Estimated Glomerular Filt Rate 136 ml/min
[2024-03-09 22:05] LABS: Alanine Aminotransferase* 111 U/L (4-35); Blood Urea Nitrogen* 8 mg/dL (5-24)
[2024-03-09 22:27] LABS: Magnesium* 5.1 mg/dL (1.5-2.6)
[2024-03-10] VITALS (121 sets, daily range): BP systolic 101–160; BP diastolic 52–98; PULSE 80–138; RESP 16–18; TEMP 36.4–37.2; O2SAT 90–100
--- NOTE | 2024-03-10 00:11 | PM.OBPNL ---
Subjective Date Seen: 03/10/24 Narrative: Was called to review EFM strip, at 2240 frequent contractions were recognized, the RN changed position of the patient and the Pitocin was decreased from 17mu/hr to 15mu/hr. Then patient had rolling contractions followed by a deep variable to the 60's with minimal variability following. Pitocin was decreased from 15mu/hr to 7mu/hr along with position changes. At this point I was called to review the strip. A fluid bolus of 500ml over 1 hour was started. At 2354 variability became moderate, a short time later there was accelerations seen. Cook remains in place. Objective Exam: VSS, afebrile Ctx: ?Q 3-5min apart. FHTs: ?Baseline: 130. ? ? Variability: moderate. ?Accels: present. ? ?Decels: ?one variable to 60;s with good return to baseline.. Membranes:Intact Vital Signs: Last Vital Signs Temp 98 F 03/09/24 22:55 Pulse 94 03/09/24 23:55 Resp 16 03/09/24 22:55 BP 116/58 L 03/09/24 23:55 Pulse Ox 95 03/09/24 17:55 O2 Del Method Room Air 03/09/24 17:33 Contractions Pitocin Rate (mU/min): 6 Assessment Assessment: induction ongoing Station: -1 Status: Category ll Plan Plan: Assessment:?? at 37.6 gestation?? GBS positive Patient is coping well with challenges of labor.?? Labor type: Induced, Early labor? Category 1 FHR pattern at this time.? complicated by: Prepregnancy BMI 46.9, Elevated BP at NOB with WNL pre-e baseline labs, Hx of Anxiety and PTSD, Asthma, Headaches Labor complicated by: ?? GHTN with Severe Features? GBS Positive? Plan:?? Induction on going, current Category I EFM stirp. Begin increasing Pitocin per protocol again. Antibiotic prophylaxis treatment per protocol, has received at least two doses, Continue with routine intrapartum cares as ordered.?? CNElena continues to manage labor and Dr. Godinez to manage magnesium. Magnesium continues infusing at 2g/hr per protcol. Lab work shows slow increase of AST and ALT, continue with q 6 hour labs as ordered. Patient encouraged to move and change positions to promote physiologic labor and .?? Nonpharmacologic comfort measures per patient preference. Candidate for analgesia of choice if desired. Anticipate progress to NVD. ? Monitoring per policy, continuous? tracing. Monitor vitals per protocol. Continue to monitor need for medication management of BP.
--- NOTE | 2024-03-10 02:17 | P.OBPN_ITS ---
Subjective Date Seen: 03/10/24 Narrative: ?Hayley is coping well with labor pain/contractions. ?Gómez is with her for support. ?Ongoing induction with IV Pitocin, John Paul was removed at 0030, 12 hours from placement. She is resting in bed and appears uncomfortable with contractions. A vaginal exam was done to check progress, this was very uncomfortable for her. Discussed internal monitor placement to help with monitoring FHR and strength of contractions either while using Nitrous or getting an epidural first/ Pt would like to get an epidural now before placing these. Objective Exam: VSS, afebrile General Appearance:? Calm, cooperative. ?No acute distress. ? Psychiatric Exam: Alert and oriented, appropriate affect Abdomen: Gravid Ctx: ?Q 3-6 min apart. ?Mild to ?Moderate ? FHTs: ?Baseline: 130. ? ? Variability: moderate. ?Accels: -. ? ?Decels: ?occasional lates. SVE: /-2 Membranes: Intact ? Vital Signs: Last Vital Signs Temp 98 F 03/09/24 22:55 Pulse 86 03/10/24 01:56 Resp 16 03/09/24 22:55 BP 129/58 L 03/10/24 01:56 Pulse Ox 94 03/10/24 01:44 O2 Del Method Room Air 03/09/24 17:33 Contractions Pitocin Rate (mU/min): 9 Assessment Station: -1 Status: Category ll Plan Plan: Assessment:?? at 38.0w gestation?? GBS positive Patient is coping with challenges of labor.?? Labor type: Induced, Early labor? Category 2 FHR pattern.? complicated by: Prepregnancy BMI 46.9, Elevated BP at NOB with WNL pre-e baseline labs, Hx of Anxiety and PTSD, Asthma, Headaches Labor complicated by: ?? GHTN with Severe Features? GBS Positive? Plan:?? Induction on going, Pitocin per protocol. Titrate per pt and response. Antibiotic prophylaxis treatment per protocol, has received at least two doses. Continue with routine intrapartum cares as ordered.?? TRENT continues to manage labor and Dr. Godinez to manage magnesium/HTN. Magnesium continues infusing at 2g/hr per protocol. Care will transfer to OB after deli very or as needed in labor. Lab work shows slow increase of AST and ALT, continue with q 6 hour labs as ordered. Patient encouraged to move and change positions to promote physiologic labor and .?? Epidural placement for labor pain management. Currently being placed by anesthesia. Anticipate progress to NVD. ? Monitoring per policy, continuous? tracing. Monitor vitals per protocol. Continue to monitor need for medication management of BP. ?
[2024-03-10] MEDS: LACTATED RINGERS 1000 ML 1,000 ML 60 ML IV (02:33)
[2024-03-10] MEDS: fentaNYL 100 MCG/2 ML inj IVP (02:45)
[2024-03-10 03:52] LABS: Hematocrit 33.4 % (33.0-51.0); Hemoglobin* 10.7 gm/dL (12.0-16.0); Mean Corpuscular HGB Conc 32 gm/dL (32-36); Mean Corpuscular Hemoglobin 28 pg (26-34); Mean Corpuscular Volume 86 fL (80-100); Platelet Count* 314 K/uL (140-440); Red Blood Count 3.89 m/uL (4.00-5.20); White Blood Count* 13.51 K/uL (4.50-11.00)
[2024-03-10 03:53] LABS: Slide Review Reflex No
[2024-03-10] MEDS: LIDOCAINE 2% (PF) 5 ML VIAL EPIDURAL (03:59)
[2024-03-10] MEDS: ROPIVACAINE 0.2% 100 ml 100 ML 12 MG EPIDURAL (04:03)
[2024-03-10 04:07] LABS: Alanine Aminotransferase* 111 U/L (4-35); Aspartate Amino Transferase* 67 U/L (12-35); Blood Urea Nitrogen* 8 mg/dL (5-24); Creatinine* 0.4 mg/dL (0.5-1.5); Est. Creatinine Clearance* 177.59; Estimated Glomerular Filt Rate 136 ml/min
[2024-03-10] MEDS: AMPICILLIN 1 GM in 0.9 % SODIUM CHLORIDE Mini-bag 100 ML IVPB ×4 (04:08→15:58)
--- NOTE | 2024-03-10 04:11 | P.ANBPRC_ITS ---
[facility] Medical History Irregular menstruation, unspecified ?N92.6 - Irregular menstruation, unspecified (ICD-10) Depression ?F32.A - Depression, unspecified (ICD-10) Anxiety ?F41.9 - Anxiety disorder, unspecified (ICD-10) History of abnormal cervical Pap smear ?Z87.42 - Personal history of other diseases of the female genital tract (ICD-10) Surgical History H/O wisdom tooth extraction ?K08.409 - Partial loss of teeth, unspecified cause, unspecified class (ICD- 10) Family History Father Stroke High blood pressure Diabetes High cholesterol Family/Other Thyroid disease Family/Other FH: mental illness Mother Alcohol dependence 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 E cigarette use, 1 pack per week. Occasional alcohol use. Denies illicit drug use. No concerns with safety or abuse What is your current living situation?: I presently have a place to live Problems where you live: no known problems In the past 12 months, utilities in danger of being shut off: no In past 12 months, lack of transportation kept you from medical appts, meetings, work, or getting things needed for daily living: no In the past 12 mos, have been you worried that your food would run out before you had money to buy more?: never true In the past 12 mos, the food you bought just didn't last and you didn't have money to buy more?: never true Smoking Status: Current every day smoker Do you use any of these nicotine containing products: None Second hand tobacco smoke exposure: No How often do you have a drink containing alcohol: never AUDIT-C Alcohol total score: 0 Non-prescribed substance use: denies use How often does anyone, including family, friends and others, physically hurt you : never How often does anyone, including family, friends and others, insult or talk down to you: never How often does anyone, including family, friends and others, threaten you with harm: never How often does anyone, including family, friends and others, scream or curse at you: never Little interest or pleasure in doing things: not at all Feeling down, depressed, or hopeless: not at all Meds Home Medications and Allergies Home Medications Medication Instructions Recorded Confirmed Type fluticasone propionate 45 2 puff inhalation BID 11/01/22 03/08/24 History mcg-salmeterol 21 mcg/actuation HFA inhaler (Advair HFA) docosahexaenoic acid 200 mg 200 mg PO DAILY 08/20/23 03/08/24 History capsule ( DHA) albuterol sulfate 90 mcg/actuation 1 inh inhalation ONCE PRN 09/15/23 03/08/24 History aerosol inhaler aspirin 81 mg tablet,delayed 81 mg PO QDAY 10/13/23 03/08/24 History release (Adult Aspirin Regimen) Allergies Allergy/AdvReac Type Severity Reaction Status Date / Time No Known Drug Allergies Allergy Verified 03/08/24 19:51 Results Labs Labs: Laboratory Results - last 24 hr 03/09/24 03/09/24 03/09/24 09:15 15:08 21:28 WBC 13.70 H 14.69 H 15.64 H RBC 3.98 L 3.94 L 3.93 L Hgb 11.0 L 10.8 L 10.8 L Hct 34.3 34.0 33.5 MCV 86 86 85 MCH 28 27 28 MCHC 32 32 32 Plt Count 302 324 321 BUN 9 8 8 Creatinine 0.4 L 0.5 0.4 L Estimated Creat Clear 177.59 142.07 177.59 Estimated GFR 136 129 136 Magnesium 5.0 H* 5.4 H* 5.1 H* AST 58 H 61 H 70 H ALT 101 H 105 H 111 H 03/10/24 03:45 WBC 13.51 H RBC 3.89 L Hgb 10.7 L Hct 33.4 MCV 86 MCH 28 MCHC 32 Plt Count 314 BUN Creatinine Estimated Creat Clear Estimated GFR Magnesium AST ALT Vital Signs Vital Signs: Last Vital Signs Temp 98.6 F 03/10/24 02:28 Pulse 96 03/10/24 04:08 Resp 16 03/09/24 22:55 BP 137/80 03/10/24 04:08 Pulse Ox 97 03/10/24 04:08 O2 Del Method Room Air 03/09/24 17:33 Weight: 132.131 kg Height: 162.56 cm Anesthesia Procedures Epidural Insertion Patient Location: OB Start Time: 02:15 Stop Time: 04:15 Start Date: 03/10/24 Stop Date: 03/10/24 Reason for Block: procedure for pain Patient Position: sitting Performed By: Milka Cohen Preanesthetic Checklist: IV checked, risks and benefits discussed, monitors and equipment checked, timeout performed and anesthesia consent Prep: chlorhexidine gluconate Monitoring: blood pressure monitoring, continuous pulse oximetry and heart rate Approach: midline Vertebral Space: lumbar (1-5) Epidural Technique: RACHEL saline Needle Type: Tuohy needle Injection Technique: continuous catheter Needle gauge: 17 Needle Length (cm): 10 cm Needle Insertion Depth (cm): 7 Catheter Gauge: 19 Catheter Type: multi-orifice Catheter at skin depth (cm): 14 Test Dose Result: negative and lidocaine 1.5% with epinephrine 1 to 200,000
[2024-03-10 04:16] LABS: Magnesium* 5.4 mg/dL (1.5-2.6)
--- NOTE | 2024-03-10 04:38 | P.OBPN_ITS ---
Subjective Date Seen: 03/10/24 Narrative: ?Hayley is now comfortable with labor pain/contractions. ?Gómez is with her for support. ?She now has an epidural in place for comfort and pain management.?It was difficult to place the epidural and during the first attempt we were unable to get FHR by external route. Because of this, the decision was made to place a FSE before getting relief with epidural. The patient understood the plan and agreed to this. She did not tolerate the placement well and was very painful with any manipulation of her cervix. She needed lots of encouragement and support while FSE was placed. At one point she told me to stop and I did, then when she was ready moved forward with FSE placement. A second PHYSICIAN PRACTICE MARKET MANAGER was called to the bedside for epidural placement as first attempt was unsuccessful and they were able to place with second attempt. Once Hayley was comfortable an IUPC was placed and Pitocin was restarted. Infusion was stopped during time when FHR was not tracing. She is now comfortable in bed. Objective Exam: VSS, afebrile General Appearance:? Calm, cooperative. ?No acute distress. ? Psychiatric Exam: Alert and oriented, appropriate affect Abdomen: Gravid Ctx: ?Q 5-8 min apart. ? ?Moderate ? FHTs: ?Baseline: 125. ? ? Variability: moderate. ?Accels: +. ? ?Decels: ?-. SVE: /-3 Membranes: ?AROM clear fluid with FSE placement Vital Signs: Last Vital Signs Temp 98.6 F 03/10/24 02:28 Pulse 89 03/10/24 04:34 Resp 16 03/09/24 22:55 BP 118/58 L 03/10/24 04:34 Pulse Ox 97 03/10/24 04:23 O2 Del Method Room Air 03/09/24 17:33 Contractions Monitor mode: Internal Pitocin Rate (mU/min): 9 Assessment Assessment: induction ongoing Station: -3 Amniotic Membrane Status: SROM Status: Category l Heart Rate Baseline: [address] Variability: Moderate (6-25) Monitor Accelerations: Present Monitor Decelerations: None Plan Plan: Assessment:?? at 38.0w gestation?? GBS positive Patient is coping with challenges of labor.?? Labor type: Induced, Early labor? Category 1 FHR pattern.? complicated by: Prepregnancy BMI 46.9, Elevated BP at NOB with WNL pre-e baseline labs, Hx of Anxiety and PTSD, Asthma, Headaches Labor complicated by: ?? GHTN with Severe Features? GBS Positive? Plan:?? Routine intrapartum cares as ordered. Induction ongoing with IV Pitocin, titrate per protocol. Antibiotic prophylaxis treatment per protocol, has already received multiple doses. Continue with routine intrapartum cares as ordered.?? OB and CNM will comanage patient during labor. Dr. Godinez managing care of the GHTN with severe features and magnesium, CNM will manage labor. Patient is aware that we will both be a part of her team. Post-delivery, CNM care will be relinquished to MD until discharge. Magnesium sulfate IV infusing at 2g per hour, labs every 6 hours. AST and ALT remain elevated but stable. Monitoring per policy, continuous? tracing. Monitor vitals per protocol. Continue to monitor need for medication management of BP. Patient encouraged to move and change positions to promote physiologic labor and .??RN to facilitate this now that she has epidural. Epidural in place for pain management. Anticipate progress to NVD
[2024-03-10] MEDS: PHENYLEPHRINE 100 MCG/ML SYRINGE IVP ×3 (04:45→05:38)
--- NOTE | 2024-03-10 08:18 | PM.OBPNL ---
Subjective Date Seen: 03/10/24 Narrative: Hayley is a 28 yo at 38 0/7 weeks gestation here for IOL for GHTN with severe features based on elevated ALT labs. She is now comfortable with an epidural and was able to rest this morning. She denies any pain or pressure at this time. She is supported in labor by her boyfriend. Objective Exam: Objective: Constitutional: Alert and oriented x3, no distress, coping well Vital signs stable, see nurse documentation Abdomen: gravid, contractions palpate moderate with contractions and soft between Cervix: 4 cm/70%/-1 station/vertex NST: 135 bpm/moderate variability, occasional episodes of minimal/15x15x accelerations/no decelerations/contractions every 1-5, MVU 160 Vital Signs: Last Vital Signs Temp 98.4 F 03/10/24 07:34 Pulse 88 03/10/24 08:04 Resp 18 03/10/24 06:33 BP 127/67 03/10/24 08:04 Pulse Ox 97 03/10/24 04:23 O2 Del Method Room Air 03/09/24 17:33 Contractions Monitor mode: Internal Assessment Assessment: early labor Station: -3 Amniotic Membrane Status: SROM Status: Category l Monitor Accelerations: Present Monitor Decelerations: None Plan Plan: Assessment:?? at 38.0w gestation?? GBS positive Patient is coping with challenges of labor.?? Labor type: Induced, Early labor? Category 1 FHR pattern.? complicated by: Prepregnancy BMI 46.9, Elevated BP at NOB with WNL pre-e baseline labs, Hx of Anxiety and PTSD, Asthma, Headaches Labor complicated by: ??GHTN with Severe Features, GBS Positive? Plan:?? Routine intrapartum cares as ordered. Induction ongoing with IV Pitocin, titrate per protocol based on MVU's. Internals placed for more accurate monitoring. Patient has had minimal changes since previous exam, continue uptitration of pitocin. Antibiotic prophylaxis treatment per protocol, has already received multiple doses. Continue with routine intrapartum cares as ordered.?? OB and CNM will comanage patient during labor. Dr. Godinez managing care of the GHTN with severe features and magnesium, CNM will manage labor. Patient is aware that we will both be a part of her team. Post-delivery, CNM care will be relinquished to MD until discharge. Magnesium sulfate IV infusing at 2g per hour, labs every 6 hours. AST and ALT remain elevated but stable. Monitoring per policy, continuous? tracing. Monitor vitals per protocol. Continue to monitor need for medication management of BP. Patient encouraged to move and change positions to promote physiologic labor and .??RN to facilitate this now that she has epidural. Epidural in place for pain management. Anticipate progress to NVD
[2024-03-10] MEDS: ROPIVACAINE 0.2% 100 ml 100 ML 10 MG EPIDURAL (08:23)
[2024-03-10 09:17] LABS: Hematocrit 35.6 % (33.0-51.0); Hemoglobin* 11.4 gm/dL (12.0-16.0); Mean Corpuscular HGB Conc 32 gm/dL (32-36); Mean Corpuscular Hemoglobin 28 pg (26-34); Mean Corpuscular Volume 86 fL (80-100); Platelet Count* 338 K/uL (140-440); Red Blood Count 4.14 m/uL (4.00-5.20); White Blood Count* 15.15 K/uL (4.50-11.00)
[2024-03-10 09:20] LABS: Slide Review Reflex No
[2024-03-10 09:43] LABS: Creatinine* 0.5 mg/dL (0.5-1.5); Est. Creatinine Clearance* 142.07; Estimated Glomerular Filt Rate 129 ml/min
[2024-03-10 09:44] LABS: Alanine Aminotransferase* 125 U/L (4-35); Aspartate Amino Transferase* 72 U/L (12-35); Blood Urea Nitrogen* 7 mg/dL (5-24)
[2024-03-10 09:50] LABS: Magnesium* 5.8 mg/dL (1.5-2.6)
[2024-03-10] MEDS: MAGNESIUM Infusion 40 GM/1,000 ML IV.SOLN IVPB (10:33)
--- NOTE | 2024-03-10 14:18 | PM.OBPNL ---
Subjective Date Seen: 03/10/24 Narrative: Hayley is a 28 yo at 38 0/7 weeks gestation here for IOL for GHTN with severe features. She was rechecked at 1230 after 4 hours since previous exam to assess progress and pitocin needs. MVU's were inadequate but significant change noted, 9.5/90/0 station. Planned recheck in 1 hour. At about the 1 hour time frame, patient began to report increasing pressure with contractions. Objective Exam: Objective: Constitutional: Alert and oriented x3, mild distress, coping well Vital signs stable, see nurse documentation Abdomen: gravid, contractions palpate moderate/strong with contractions and soft between Cervix: Complete, +1 NST: 135 bpm/moderate with episodes of minimal variability/15x15 accelerations/variable decelerations/contractions every 2-4 minutes, MVU inadequate Vital Signs: Last Vital Signs Temp 98.9 F 03/10/24 13:20 Pulse 111 H 03/10/24 14:04 Resp 18 03/10/24 06:33 BP 141/85 H 03/10/24 14:04 Pulse Ox 97 03/10/24 04:23 O2 Del Method Room Air 03/09/24 17:33 Contractions Monitor mode: Internal Pitocin Rate (mU/min): 9 Assessment Assessment: active labor Amniotic Membrane Status: SROM Status: Category ll Plan Plan: Assessment:?? at 38.0w gestation?? Patient is coping with challenges of labor.?? Labor type: Induced, Active labor? Category 2 FHR pattern.? complicated by: Prepregnancy BMI 46.9, Elevated BP at NOB with WNL pre-e baseline labs, Hx of Anxiety and PTSD, Asthma, Headaches Labor complicated by: ??GHTN with Severe Features, GBS Positive? Plan:?? Routine intrapartum cares as ordered. Induction ongoing with IV Pitocin, titrate per protocol based on MVU's. Internals placed for more accurate monitoring. Antibiotic prophylaxis treatment per protocol, has already received multiple doses. Continue with routine intrapartum cares as ordered.?? OB and CNM will comanage patient during labor. Dr. Morocho has assumed managing care of the GHTN with severe features and magnesium today. CNM will continue to manage labor. Patient is aware that we will both be a part of her team. Post-delivery, CNM care will be relinquished to MD until discharge. Md update of patient labor status. Magnesium sulfate IV infusing at 2g per hour, labs every 6 hours. AST and ALT remain elevated but stable. Monitoring per policy, continuous? tracing. Monitor vitals per protocol. Continue to monitor need for medication management of BP. Patient encouraged to move and change positions to promote physiologic labor and .??RN to facilitate this now that she has epidural. Epidural in place for pain management. Anticipate progress to NVD
[2024-03-10] MEDS: LACTATED RINGERS 1000 ML 1,000 ML 71 ML IV (17:16)
[2024-03-10] MEDS: TRANEXAMIC ACID 100 MG/ML INJ 1000 MG IV (17:19)
--- NOTE | 2024-03-10 17:37 | W.PM.OBVAGDE ---
OB Procedure Vag Delivery Mother Details Mother Details: The patient is a 28 year-old, 1, now Para 1 admitted on 03/08/24 at 37.5 weeks gestation. : 1 Para: 1 Weeks Gestation: 38 Admission Date: 03/08/24 Additional Details Amniotic Membrane Status: AROM Amniotic Membrane Rupture Date: 03/10/24 Amniotic Membrane Rupture Time: 03:19 Amniotic Membrane Fluid Description: Clear Analgesia/Anesthesia Type: Epidural Waterbirth: No Pitcoin: Yes Intrapartal Events: Labor Induction and Prolonged 2nd Stage >2.5 Hrs Induction Method: Intracervical balloon catheter, per misoprostol protocol, per pitocin protocol and AROM Labor Onset: 02:45 Complete: 13:49 Pushin:53 Heart: heart tones during second stage were category II with good return to baseline between contractions. Variables present with pushing. Terminal bradycardia x 5 minutes. Delivery Details Delivery Date: 03/10/24 Delivery Time: 17:11 Route of delivery: Infant Gender: Female Viability: Alive; Heart Rate Present Position at Delivery: OA Delivery Details: Patient was admitted for induction of labor for GHTN with severe features and progressed with cytotec, cook catheter, pitocin, and AROM at 0319 with clear fluid. Patient was complete at 1349 and pushing at 1353. She pushed in many positions. She occasionally breathed through contractions. She made slow but steady progress. At the end, maternal fatigue was evident but she persisted with verbal encouragement. of a viable female at 1711 in semi-reclined position on the bed. Vertex delivered OA. No nuchal cord or shoulder. Body delivered easily and without incident. passed to mothers abdomen with a vigorous cry. Cord was clamped and cut immediately and taken to warmer. CLAY PRODUCTS MACHINE OPERATOR in attendance of delivery. Cord gases were obtained. APGARS were 2, 6, 8 at one, five, and ten minutes respectively. Intact placenta with a 3 vessel cord delivered spontaneously at 1721. Fundus firm, TXA and Pitocin IV given as prophylaxis. Perineal, right labial, and periurethral abrasions identified, not repaired. QBL 300 cc. Mother and baby stable; mother plans to breastfeed. Infant weight 7lb 2 oz. GBS adequately treated. 1 Minute Interval Total Score: 2 5 Minute Interval Total Score: 6 10 Minute Interval Total Score: 8 Additional Details Shoulder Dystocia: No Placenta Delivery Time: 17:21 Placental Delivery Description: Spontaneous Procedure Done: Global Blood Loss: 200 Laceration: None Blood Loss Measurement Type: QBL Bakri Used: No Sponge/Need Count Correct: Yes Cord Vessel Description: 3 Vessels, Nuchal Cord and Delivered through Event Summary Status: Mother and infant were stable after delivery. Will continue magnesium sulfate for 24 hours post delivery. Care to be assumed by MD team. Disposition: floor
[2024-03-10 17:54] LABS: Hematocrit 35.3 % (33.0-51.0); Hemoglobin* 11.2 gm/dL (12.0-16.0); Mean Corpuscular HGB Conc 32 gm/dL (32-36); Mean Corpuscular Hemoglobin 28 pg (26-34); Mean Corpuscular Volume 87 fL (80-100); Platelet Count* 314 K/uL (140-440); Red Blood Count 4.08 m/uL (4.00-5.20); White Blood Count* 18.43 K/uL (4.50-11.00)
[2024-03-10 17:55] LABS: Slide Review Reflex No
[2024-03-10 18:06] LABS: Alanine Aminotransferase* 132 U/L (4-35); Aspartate Amino Transferase* 87 U/L (12-35); Blood Urea Nitrogen* 9 mg/dL (5-24); Creatinine* 0.8 mg/dL (0.5-1.5); Est. Creatinine Clearance* 88.79; Estimated Glomerular Filt Rate 102 ml/min
[2024-03-10 18:09] LABS: Magnesium* 7.6 mg/dL (1.5-2.6)
[2024-03-10] MEDS: ACETAMINOPHEN 500 MG TABLET 1000 MG PO (19:32)
[2024-03-10] MEDS: LACTATED RINGERS 1000 ML 1,000 ML 75 ML IV (20:00)
[2024-03-11] VITALS (18 sets, daily range): BP systolic 117–139; BP diastolic 68–87; PULSE 75–92; RESP 16; TEMP 36.5–36.7; O2SAT 93–97
[2024-03-11 00:06] LABS: Hematocrit 31.6 % (33.0-51.0); Hemoglobin* 10.1 gm/dL (12.0-16.0); Mean Corpuscular HGB Conc 32 gm/dL (32-36); Mean Corpuscular Hemoglobin 28 pg (26-34); Mean Corpuscular Volume 86 fL (80-100); Platelet Count* 293 K/uL (140-440); Red Blood Count 3.67 m/uL (4.00-5.20); Slide Review Reflex No; White Blood Count* 18.48 K/uL (4.50-11.00)
[2024-03-11 00:23] LABS: Rapid Plasma Reagin (RPR) Non Reactive (Non Reactive)
[2024-03-11 00:29] LABS: Alanine Aminotransferase* 104 U/L (4-35); Aspartate Amino Transferase* 73 U/L (12-35); Blood Urea Nitrogen* 9 mg/dL (5-24); Creatinine* 0.6 mg/dL (0.5-1.5); Est. Creatinine Clearance* 118.39; Estimated Glomerular Filt Rate 124 ml/min
[2024-03-11 00:39] LABS: Magnesium* 6.1 mg/dL (1.5-2.6)
[2024-03-11] MEDS: IBUPROFEN 600 MG TABLET PO ×2 (03:55→17:18)
[2024-03-11] MEDS: MAGNESIUM Infusion 40 GM/1,000 ML IV.SOLN IVPB (06:48)
[2024-03-11 06:56] LABS: Magnesium* 5.5 mg/dL (1.5-2.6)
--- NOTE | 2024-03-11 08:00 | PM.OBPNVD1 ---
OB - PN:Subj Subjective Time Seen by Provider: 08:00 Date Seen: 03/11/24 Narrative: HPI: The patient is ppd#1 from an uncomplicated vaginal delivery. She feels well but tired. She is pumping and giving breast milk by bottle without difficulty. She states her pain is well controlled with current pain medication. She is passing flatus. Ambulating with some difficulty due to being on magnesium sulfate for seizure prophylaxis. Tolerating a regular diet. Urine output is adequate. She is urinating without difficulty. Lochia: minimal. Objective: General: No acute distress. Vital signs: See the patient's electronic medical record. Psychiatric: Alert and oriented x3. Appropriate affect. Heart: Regular rate and rhythm without gallop, rub or murmur. Chest: Clear to auscultation bilaterally. Abdomen: Soft, nontender and nondistended with normal bowel sounds throughout. Fundus is firm at 2 cm below the umbilicus in the midline. Fundus is nontender to palpation. Perineum: Mild edema with well-healed abrasions. Extremities: 2+ bilateral lower extremity edema Assessment/Plan: day 1 from an uncomplicated vaginal delivery. hemoglobin: 10.1 Continue pumping and see if she desires. LFT's are trending down, continue to monitor. No need for antihypertensive medication at this time, continue to evaluate BP throughout the day. Planning discharge home tomorrow or Friday. OB - PN: Obj Exam Physical Exam: Vital signs: Temp Pulse Resp BP Pulse Ox O2 Del Method 98.1 F 77 16 120/83 97 Room Air 03/11/24 04:12 03/11/24 06:24 03/11/24 06:24 03/11/24 07:48 03/11/24 06:24 03/11/24 06:24 OB - PN: Obj Data Labs Labs: Laboratory Results - last 24 hr 03/08/24 03/10/24 03/10/24 15:10 09:04 17:47 WBC 15.15 H 18.43 H RBC 4.14 4.08 Hgb 11.4 L 11.2 L Hct 35.6 35.3 MCV 86 87 MCH 28 28 MCHC 32 32 Plt Count 338 314 BUN 7 9 Creatinine 0.5 0.8 Estimated Creat Clear 142.07 88.79 Estimated GFR 129 102 Magnesium 5.8 H* 7.6 H* AST 72 H 87 H ALT 125 H 132 H RPR Screen Non Reactive 03/11/24 03/11/24 00:00 06:05 WBC 18.48 H RBC 3.67 L Hgb 10.1 L Hct 31.6 L MCV 86 MCH 28 MCHC 32 Plt Count 293 BUN 9 Creatinine 0.6 Estimated Creat Clear 118.39 Estimated GFR 124 Magnesium 6.1 H* 5.5 H* AST 73 H ALT 104 H RPR Screen OB - PN: A/P Delivery Assessment and Plan (1) Encounter for induction of labor: Status: Acute (2) Gestational hypertension: Problem details: With severe features Status: Acute (3) 37 weeks gestation of : Status: Acute (4) Morbid obesity with BMI of 45.0-49.9, adult: Status: Acute (5) Asthma: Status: Acute (6) (normal spontaneous vaginal delivery): Status: Acute
[2024-03-11] MEDS: DOCUSATE SODIUM 100 MG CAPSULE PO (09:09)
[2024-03-11] MEDS: ENOXAPARIN 40 MG/0.4 ML INJ SUBCUT (09:10)
[2024-03-11 12:47] LABS: Magnesium* 5.6 mg/dL (1.5-2.6)
--- NOTE | 2024-03-11 13:20 | PM.ANPOST ---
Post Anesthesia Note Post Anesthesia Note Patient seen: Inpatient Respiratory Status: adequate Cardiovascular Status: adequate Mental Status: baseline Pain: adequate Temp: baseline Anesthetic awareness: N/A Complications: none Follow care: none
[2024-03-12] VITALS (7 sets, daily range): BP systolic 128–140; BP diastolic 80–85; PULSE 71–104; RESP 14–18; TEMP 36.8–37.3; O2SAT 95–98
[2024-03-12 05:22] LABS: Hematocrit 32.1 % (33.0-51.0); Hemoglobin* 9.9 gm/dL (12.0-16.0); Mean Corpuscular HGB Conc 31 gm/dL (32-36); Mean Corpuscular Hemoglobin 27 pg (26-34); Mean Corpuscular Volume 88 fL (80-100); Platelet Count* 315 K/uL (140-440); Red Blood Count 3.65 m/uL (4.00-5.20)
[2024-03-12 05:25] LABS: Slide Review Reflex No
[2024-03-12 05:37] LABS: Alanine Aminotransferase* 99 U/L (4-35); Aspartate Amino Transferase* 53 U/L (12-35); Blood Urea Nitrogen* 15 mg/dL (5-24); Creatinine* 0.6 mg/dL (0.5-1.5); Est. Creatinine Clearance* 118.39; Estimated Glomerular Filt Rate 124 ml/min
--- NOTE | 2024-03-12 08:22 | P.OBPN_ITS ---
OB - PN:Subj Subjective Time Seen by Provider: 07:30 Date Seen: 03/12/24 Narrative: Ms. Medrano is a 28yo seen on PPD2 from following IOL for preeclampsia with severe features. was otherwise complicated by asthma and class 3 obesity. Since delivery, her preeclampsia labs are improving - particularly her transaminitis. Her blood pressures have been in the normal to mild range. She is diuresing readily. This morning, she feels well. She denies any headache, vision changes or right upper quadrant pain. She notes mild uterine cramping, no other abdominal or pelvic pain. Appetite at baseline, no nausea/vomiting. Voids without diffic ulty. She is passing gas and bowel movement x1. Ambulates without dizziness or lightheadedness. She has notes her lower extremity edema is improving. She is pumping exclusively, notes production of colostrum but her milk is not yet commenced. OB - PN: Obj Exam Physical Exam: Vital signs: Temp Pulse Resp BP Pulse Ox O2 Del Method 98.8 F 71 16 140/84 H 97 Room Air 03/12/24 07:43 03/12/24 07:43 03/12/24 07:43 03/12/24 07:43 03/12/24 07:43 03/12/24 07:43 Narrative: General: Alert and oriented, in no acute distress Heart: Regular rate and rhythm, no rubs/murmurs or gallops Lungs: Clear to auscultation throughout, no wheezes rales or crackles. Abdomen: Soft, nondistended. Mild tenderness to deep palpation in the right upper quadrant. Fundus at umbilicus. Extremities: Patellar reflexes 2+ bilaterally. 1+ pitting edema to the mid holcomb bilaterally. No calf pain or redness. OB - PN: Obj Data Labs Labs: Laboratory Results - last 24 hr 03/11/24 03/12/24 12:06 05:15 WBC 14.80 H RBC 3.65 L Hgb 9.9 L Hct 32.1 L MCV 88 MCH 27 MCHC 31 L Plt Count 315 BUN 15 Creatinine 0.6 Estimated Creat Clear 118.39 Estimated GFR 124 Magnesium 5.6 H* AST 53 H ALT 99 H OB - PN: A/P Delivery Assessment and Plan (1) Encounter for induction of labor: Status: Acute (2) Gestational hypertension: Problem details: With severe features Status: Acute (3) 37 weeks gestation of : Status: Acute (4) Morbid obesity with BMI of 45.0-49.9, adult: Status: Acute (5) Asthma: Status: Acute (6) (normal spontaneous vaginal delivery): Status: Acute Plan Comments: Ms. Medrano is a 28yo seen on day 2 from an following induction of labor for preeclampsia with severe features (transaminitis). Her course has been unremarkable to present. Hayley's blood pressures are up trending through time, 140/84 this morning. She denies headache, vision changes or right upper quadrant pain. Preeclampsia labs are downtrending, she does continue to have mild right upper quadrant pain to deep palpation. I recommend we initiate nifedipine 30 mg XL daily this morning, and continue to monitor her blood pressures over the next 24 hours. Magnesium sulfate was completed on 03/11 at 1700, where she was hopeful to discharge to home 24 hours post Mag. I explained my medical recommendation would be to stay inpatient overnight given the need to start antihypertensive regimen. After discussion, she wishes to review her blood pressure control through the day at 1700 today. Otherwise routine care and pumping support.
[2024-03-12] MEDS: ENOXAPARIN 40 MG/0.4 ML INJ SUBCUT (09:10)
[2024-03-12] MEDS: NIFEdipine 30 MG TAB.ER.24 PO (09:15)
[2024-03-12] MEDS: DOCUSATE SODIUM 100 MG CAPSULE PO (09:16)
--- NOTE | 2024-03-12 16:43 | P.DS_ITS ---
DS: Providers Provider Time Seen by Provider: 16:43 Date Seen: 03/12/24 Date of admission: 03/08/24 17:33 Primary care physician: Not a Local Provider Admitting Clinician: Sandy Coe CNM Attending Physician on discharge: Sandy Coe CNM Date of Discharge: 03/12/24 Exam Narrative: Exam Narrative: Vital signs reviewed, within normal limits. General: Alert and oriented, in no acute distress Psych: Appropriate mood and affect Remainder per my am rounding note Const: Vital Signs, click to edit/add: Vital Signs - 24 hr 03/11/24 17:19 03/11/24 21:14 03/12/24 02:03 Temperature 98.1 F 98.2 F Pulse Rate [Pulse Oximeter] 75 75 Respiratory Rate 16 16 Blood Pressure [Le ft Arm] 134/81 117/80 130/84 Pulse Oximetry 96 95 Oxygen Delivery Me thod Room Air Room Air 03/12/24 05:10 03/12/24 07:43 03/12/24 09:15 Temperature 98.8 F 98.8 F Pulse Rate [Pulse Oximeter] 93 71 Respiratory Rate 16 16 Blood Pressure [Le ft Arm] 134/85 140/84 H 132/82 Pulse Oximetry 97 Oxygen Delivery Me thod Room Air 03/12/24 12:09 03/12/24 14:32 03/12/24 16:27 Temperature 98.8 F 99.1 F Pulse Rate [Pulse Oximeter] 104 H 99 Respiratory Rate 14 18 Blood Pressure [Le ft Arm] 128/84 130/83 136/80 Pulse Oximetry 97 98 Oxygen Delivery Me thod Room Air Room Air OB - DS: Summary Hospital Course Hospital Course: The patient is a 28 year old G 1 P 1 that was admitted to the Center on 03/08/24 for preeclampsia with severe features. She had an uncomplicated vaginal delivery. She delivered a viable female infant. She is pumping and bottle feeding. the patient has done well. She received 24 hours of magnesium sulfate for seizure prophylaxis. Her preeclampsia labs were noted to be improving, particularly with down trending of her transaminitis. Blood pressures were primarily well controlled, though she was started on nifedipine 30 mg XL daily on day 2. Following this, all blood pressures were normal. Patient is asymptomatic. I did recommend she stay overnight for further blood pressure monitoring, as it is possible she will need further t itration. Patient strongly desires dismissal to home. She is agreeable to twice daily blood pressure checks, continue nifedipine and very low threshold to return to care. Infant Gender: Female Time Spent with Patient Time attestation: Total time spent providing and/or coordinating discharge services: Discharge Plan Discharge Disposition: Home, Self-Care Date of Admission: 03/08/24 17:33 Attending Provider on Discharge: Eva Wiseman Primary Care Provider: Provider,Not a Local Condition: Stable Anticipated Discharge Date/Time: 03/12/24 17:00 Discharge Medications: New nifedipine 30 mg Tablet Extended Release 24hr 30 mg PO DAILY 30 Days Qty: 30 0RF Continued DHA 200 mg capsule 200 mg PO DAILY Advair HFA 45-21 mcg/actuation HFA aerosol inhaler 2 puff inhalation BID albuterol sulfate 90 mcg/actuation HFA aerosol inhaler 1 inh inhalation ONCE PRN Discontinued aspirin [Adult Aspirin Regimen] 81 mg tablet,delayed release (DR/EC) 81 mg PO QDAY Discharge Orders: Discharge Order (Routine); Ordered 03/12/24 Ordered By: Eva Wiseman Patient Education: OB High Blood Pressure DC, OB Over the Counter Medication Information, OB Vaginal/Bottle Feeding Additional Instructions: Discharge instructions were reviewed with the patient including signs and symptoms of infection and home going medications Nothing vaginally for 6 weeks: no tampons or intercourse Do not drive while taking narcotic pain medication(s) Off Work or School for 8 weeks Symptoms to report to doctor: * Bleeding that saturates more than one pad per hour * Passing clots larger than the size of a golf ball * Pain not relieved by prescribed medication * Fever above 100.4 degrees Fahrenheit * A foul vaginal odor * Difficulty in emotions, mood, and functions * Thoughts of hurting yourself and/or * Painful, reddened area in your breast * Any drainage, redness, or tenderness in your IV/epidural site * Severe headache that doesn't improve after taking medications * Changes in vision, including temporary loss of vision, blurred vision, and/or light sensitivity * Upper abdominal pain (usually under ribs on the right side) * Decrease in urination or painful, frequent urinating * Chest pain * Shortness of breath * Tenderness or pain with redness and/swelling in the calf(s) of your leg [facility] a BP check on Friday, 03/15. Continue nifedipine 30mg XL twice daily. Please check your blood pressure twice daily. Call with BP greater than or equal to 160/110 or with persistent values >140/90 for increased BP medications Optional 2-week visit: discuss infant feeding concerns, review control options and screen for anxiety/depression. 6-week visit for an annual exam. consultation services are available to all mothers and babies for the first year after delivery.? To make an appointment, please call [phone]. Follow Up Appointments: Provider,Not a Local [Primary Care Provider] - Forms: [employer] Info Instructions
== END 2024-03-12 18:30 | disposition home or self-care (01) | DRG 560 ==
PROVIDERS: Advanced Practice Midwife; Obstetrics & Gynecology; Admitting Provider Advanced Practice Midwife; Visit Provider Advanced Practice Midwife
DX: O13.4 Gestational [pregnancy-induced] hypertension without significant proteinuria, complicating childbirth (principal); Z3A.37 37 weeks gestation of pregnancy; Z37.0 Single live birth; O99.214 Obesity complicating childbirth; Z86.59 Personal history of other mental and behavioral disorders; J45.909 Unspecified asthma, uncomplicated; O99.824 Streptococcus B carrier state complicating childbirth
CPT/HCPCS: 01967; 36415; 59200; 82565; 83735; 84450; 84460; 84520; 85027; 86592; 88307; A9270; C1726; J0290; J1650; J2270; J2371; J2795; J3010; J3475; J7120

== ENCOUNTER 2024-03-13 09:58 | Inpatient (IN) | payer BC, SELFPAY ==
[2024-03-13] VITALS (26 sets, daily range): BP systolic 109–151; BP diastolic 70–90; PULSE 71–114; RESP 14–22; TEMP 36.2–37; O2SAT 96–99; BMI 49.4
--- NOTE | 2024-03-13 10:24 | ED.GENADULT ---
HPI - General Adult General Time Seen by Provider: 12:30 <Rosy Bright MD - Last Filed: 03/13/24 11:52> Date Seen: 03/13/24 <Rosy Bright MD - Last Filed: 03/13/24 11:52> Chief complaint: Hypertension <Clem Hodges MD - Last Filed: 03/13/24 15:17> Stated complaint: H BP 191/120-Gave . <Clem Hodges MD - Last Filed: 03/13/24 15:17> Time Seen by Provider: 03/13/24 10:00 <Clem Hodges MD - Last Filed: 03/13/24 15:17> History of Present Illness HPI narrative: PATIENT IS A 28-YEAR-OLD FEMALE WHO DELIVERED 3 DAYS AGO, SHE HAD a preeclampsia at that time. She was treated with magnesium and induced and had a vaginal delivery. She went home last night on nifedipine, she reports that her swelling in her legs went down last night, she had liver function tests were trending down during her hospital stay. She has no symptoms at present no headache no right upper quadrant pain or other visual change. The patient reports her lochia is diminishing. The patient has taken her nifedipine this morning. She did report that her blood pressure was elevated the 190 range systolic over 120 at home, she is not sure if she measured this correctly as there was an error on the machine listed and she was unsure if that was indicating was high or the pressure reading was obtained in air. She is about 150/90 here. Discussed promptly with Dr. Rosy Knutson who a recommended repeat liver function tests repeat analysis of her blood pressures and if they are less than 160 systolic she could probably continue nifedipine continue monitoring at home and recheck blood pressure on Friday in the clinic. <Clem Hodges MD - Last Filed: 03/13/24 15:17> PATIENT IS A 28-YEAR-OLD FEMALE WHO DELIVERED 3 DAYS AGO, SHE HAD a preeclampsia at that time. She was treated with magnesium and induced and had a vaginal delivery. She went home last night on nifedipine, she reports that her swelling in her legs went down last night, she had liver function tests were trending down during her hospital stay. She has no symptoms at present no headache no right upper quadrant pain or other visual change. The patient reports her lochia is diminishing. The patient has taken her nifedipine this morning. She did report that her blood pressure was elevated the 190 range systolic over 120 at home, she is not sure if she measured this correctly as there was an error on the machine listed and she was unsure if that was indicating was high or the pressure reading was obtained in air. She is about 150/90 here. Discussed promptly with Dr. Rosy Knutson who a recommended repeat liver function tests repeat analysis of her blood pressures and if they are less than 160 systolic she could probably continue nifedipine continue monitoring at home and recheck blood pressure on Friday in the clinic. TOP WADDY: After the patient was seen in the emergency department and noted to have her liver function tests increasing she was readmitted for repeat magnesium for seizure prophylaxis and adjustment in her hypertensive medication. Her blood pressures were all elevated in the emergency department but not at the severe range. 140s-150s/70s-90s. I increased her nifedipine from 30 mg daily to 60 mg b.i.d. with the hope of controlling her blood pressure enough that she can be discharged on Friday after 24 hours of magnesium plus monitoring blood pressure after magnesium is discontinued. She has no symptoms of preeclampsia: She denies headache, right upper quadrant pain and visual disturbance. Continues to have some swelling but states that her swelling has improved since delivery, especially since yesterday. <Rosy Bright MD - Last Filed: 03/13/24 11:52> Related Data Home medications: Home Medications Medication Instructions Recorded Confirmed fluticasone propionate 45 2 puff inhalation BID 11/01/22 03/08/24 mcg-salmeterol 21 mcg/actuation HFA inhaler (Advair HFA) docosahexaenoic acid 200 mg 200 mg PO DAILY 08/20/23 03/08/24 capsule ( DHA) albuterol sulfate 90 mcg/actuation 1 inh inhalation ONCE PRN 09/15/23 03/08/24 aerosol inhaler Previous Rx's Medication Instructions Recorded nifedipine 30 mg tablet,extended 30 mg PO DAILY 30 days #30 tabs 03/12/24 release 24 hr <Clem Hodges MD - Last Filed: 03/13/24 15:17> Allergies/adverse reactions: Allergies Allergy/AdvReac Type Severity Reaction Status Date / Time No Known Drug Allergies Allergy Verified 03/13/24 13:03 <Clem Hodges MD - Last Filed: 03/13/24 15:17> Review of Systems Status of ROS: Reports: 6 or more systems reviewed and unremarkable except as noted in History and below <Clem Hodges MD - Last Filed: 03/13/24 15:17> [facility] Medical History: Medical History Irregular menstruation, unspecified ?N92.6 - Irregular menstruation, unspecified (ICD-10) Depression ?F32.A - Depression, unspecified (ICD-10) Anxiety ?F41.9 - Anxiety disorder, unspecified (ICD-10) History of abnormal cervical Pap smear ?Z87.42 - Personal history of other diseases of the female genital tract (ICD-10) <Clem Hodges MD - Last Filed: 03/13/24 15:17> Surgical History: Surgical History H/O wisdom tooth extraction ?K08.409 - Partial loss of teeth, unspecified cause, unspecified class (ICD-10) <Clem Hodges MD - Last Filed: 03/13/24 15:17> Family History: Family History Father Stroke High blood pressure Diabetes High cholesterol Family/Other Thyroid disease Family/Other FH: mental illness Mother Alcohol dependence <Clem Hodges MD - Last Filed: 03/13/24 15:17> Social History: 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 E cigarette use, 1 pack per week. Occasional alcohol use. Denies illicit drug use. No concerns with safety or abuse What is your current living situation?: I presently have a place to live Problems where you live: no known problems In the past 12 months, utilities in danger of being shut off: no In past 12 months, lack of transportation kept you from medical appts, meetings, work, or getting things needed for daily living: no In the past 12 mos, have been you worried that your food would run out before you had money to buy more?: never true In the past 12 mos, the food you bought just didn't last and you didn't have money to buy more?: never true Smoking Status: Former smoker Do you use any of these nicotine containing products: None Second hand tobacco smoke exposure: No How often do you have a drink containing alcohol: never How often do you have six or more drinks on one occasion: Never AUDIT-C Alcohol total score: 0 Non-prescribed substance use: denies use How often does anyone, including family, friends and others, physically hurt you: never How often does anyone, including family, friends and others, insult or talk down to you: never How often does anyone, including family, friends and others, threaten you with harm: never How often does anyone, including family, friends and others, scream or curse at you: never Little interest or pleasure in doing things: not at all Feeling down, depressed, or hopeless: not at all service: No <Clem Hodges MD - Last Filed: 03/13/24 15:17> Exam Narrative: Exam Narrative: Objective: Patient's blood pressure is 142/79 on a repeat check pulses regular, she is afebrile. She is alert or x3 asymptomatic HEENT is unremarkable no facial asymmetry Neck is supple Pulses regular Extremities show no edema, good peripheral perfusion. <Clem Hodges MD - Last Filed: 03/13/24 15:17> Exam Narrative: Objective: Patient's blood pressure is 142/79 on a repeat check pulses regular, she is afebrile. She is alert or x3 asymptomatic HEENT is unremarkable no facial asymmetry Neck is supple Pulses regular Extremities show no edema, good peripheral perfusion. TOP WADDY: GENERAL APPEARANCE: Pleasant, , well-groomed woman in no acute distress. VITAL SIGNS: As noted in her EMR HEAD: Normocephalic, atraumatic. THYROID: no masses, nodularity, tenderness or enlargement. LUNGS: Clear to auscultation bilaterally without wheezes, rales or rhonchi. HEART: Regular rate and rhythm with normal S1 and S2. No gallop, rub or murmur. ABDOMEN: Fundus firm at 3 cm below the umbilicus in the midline. Soft, nontender, nondistended, with normal bowels sounds throughout. EXTREMITIES: No cyanosis, clubbing, or varicosities. 1-2 +bilateral lower extremity edema to the ankle. NEUROLOGIC: Normal gait and balance. Normal deep tendon reflexes at bilateral patella 2+/2, equal without clonus. PSYCHIATRIC: alert and oriented x3. Normal speech pattern, eye contact and affect. SKIN: Warm, dry, and well perfused. Good turgor. No lesions, nodules or rashes. <Rosy Bright MD - Last Filed: 03/13/24 11:52> Const: Vital Signs, click to edit/add: Vital Signs - 24 hr 03/13/24 10:05 03/13/24 10:16 03/13/24 10:30 Temperature 97.2 F L Pulse Rate Pulse Rate [Pulse Oximeter] 77 72 Respiratory Rate 18 16 Blood Pressure Blood Pressure [Ri ght Upper Arm] 150/90 H 142/79 H Pulse Oximetry 96 97 99 Oxygen Delivery Me thod Room Air Room Air 03/13/24 10:55 03/13/24 11:00 03/13/24 11:05 Temperature Pulse Rate 74 71 71 Pulse Rate [Pulse Oximeter] Respiratory Rate 14 Blood Pressure 151/76 H Blood Pressure [Ri ght Upper Arm] Pulse Oximetry 96 98 97 Oxygen Delivery Me thod 03/13/24 11:35 03/13/24 11:37 03/13/24 11:42 Temperature Pulse Rate Pulse Rate [Pulse Oximeter] Respiratory Rate Blood Pressure 148/83 H 132/87 141/75 H Blood Pressure [Ri ght Upper Arm] Pulse Oximetry Oxygen Delivery Me thod 03/13/24 11:47 03/13/24 11:52 Temperature Pulse Rate Pulse Rate [Pulse Oximeter] Respiratory Rate Blood Pressure 128/70 123/75 Blood Pressure [Ri ght Upper Arm] Pulse Oximetry Oxygen Delivery Me thod <Clem Hodges MD - Last Filed: 03/13/24 15:17> Vital Signs, click to edit/add: Vital Signs - 24 hr 03/13/24 10:05 03/13/24 10:16 03/13/24 10:30 Temperature 97.2 F L Pulse Rate Pulse Rate [Pulse Oximeter] 77 72 Respiratory Rate 18 16 Blood Pressure Blood Pressure [Ri ght Upper Arm] 150/90 H 142/79 H Pulse Oximetry 96 97 99 Oxygen Delivery Me thod Room Air Room Air 03/13/24 10:55 03/13/24 11:00 03/13/24 11:05 Temperature Pulse Rate 74 71 71 Pulse Rate [Pulse Oximeter] Respiratory Rate 14 Blood Pressure 151/76 H Blood Pressure [Ri ght Upper Arm] Pulse Oximetry 96 98 97 Oxygen Delivery Me thod 03/13/24 11:35 03/13/24 11:37 03/13/24 11:42 Temperature Pulse Rate Pulse Rate [Pulse Oximeter] Respiratory Rate Blood Pressure 148/83 H 132/87 141/75 H Blood Pressure [Ri ght Upper Arm] Pulse Oximetry Oxygen Delivery Me thod 03/13/24 11:47 03/13/24 11:52 Temperature Pulse Rate Pulse Rate [Pulse Oximeter] Respiratory Rate Blood Pressure 128/70 123/75 Blood Pressure [Ri ght Upper Arm] Pulse Oximetry Oxygen Delivery Me thod <Rosy Bright MD - Last Filed: 03/13/24 11:52> Course Course ED Course: Assessment: Worsening transaminitis in a patient with history of severe preeclampsia Plan: 1. Readmission for 24 hours of magnesium. 2. Modify blood pressure medication from nifedipine 30 mg daily to nifedipine ER 60 mg b.i.d. 3. Early discharge home Friday and 03/15/2024 <Rosy Bright MD - Last Filed: 03/13/24 11:52> Vital Signs Vital signs: Initial Vital Signs Temperature 97.2 F L 03/13/24 10:05 Temperature Source Temporal Artery Scan 03/13/24 10:05 Pulse Rate 77 03/13/24 10:05 Pulse Rhythm Regular 03/13/24 10:05 Respiratory Rate 18 03/13/24 10:05 Blood Pressure 150/90 H 03/13/24 10:05 Blood Pressure Mean 110 H 03/13/24 10:05 Blood Pressure Position Supine 03/13/24 10:05 Pulse Oximetry 96 03/13/24 10:05 Oxygen Delivery Method Room Air 03/13/24 10:05 Vital Signs Temperature 97.2 F L 03/13/24 10:05 Pulse Rate 77 03/13/24 10:05 Respiratory Rate 18 03/13/24 10:05 Blood Pressure 150/90 H 03/13/24 10:05 Pulse Oximetry 96 03/13/24 10:05 Oxygen Delivery Method Room Air 03/13/24 10:05 Temperature 98.5 F 03/13/24 15:10 Pulse Rate 101 H 03/13/24 15:10 Respiratory Rate 20 03/13/24 15:10 Blood Pressure 132/84 03/13/24 15:10 Pulse Oximetry 97 03/13/24 15:10 Oxygen Delivery Method Room Air 03/13/24 15:10 <Clem Hodges MD - Last Filed: 03/13/24 15:17> Initial Vital Signs Temperature 97.2 F L 03/13/24 10:05 Temperature Source Temporal Artery Scan 03/13/24 10:05 Pulse Rate 77 03/13/24 10:05 Pulse Rhythm Regular 03/13/24 10:05 Respiratory Rate 18 03/13/24 10:05 Blood Pressure 150/90 H 03/13/24 10:05 Blood Pressure Mean 110 H 03/13/24 10:05 Blood Pressure Position Supine 03/13/24 10:05 Pulse Oximetry 96 03/13/24 10:05 Oxygen Delivery Method Room Air 03/13/24 10:05 Vital Signs Temperature 97.2 F L 03/13/24 10:05 Pulse Rate 77 03/13/24 10:05 Respiratory Rate 18 03/13/24 10:05 Blood Pressure 150/90 H 03/13/24 10:05 Pulse Oximetry 96 03/13/24 10:05 Oxygen Delivery Method Room Air 03/13/24 10:05 Temperature 98.5 F 03/13/24 15:10 Pulse Rate 101 H 03/13/24 15:10 Respiratory Rate 20 03/13/24 15:10 Blood Pressure 132/84 03/13/24 15:10 Pulse Oximetry 97 03/13/24 15:10 Oxygen Delivery Method Room Air 03/13/24 15:10 <Rosy Bright MD - Last Filed: 03/13/24 11:52> Medications Administered Medications: Generic Name Dose Route Start Last Admin Trade Name Freq PRN Reason Stop Dose Admin Lactated Ringer's 1,000 mls @ 75 mls/hr 03/13/24 11:20 03/13/24 11:32 Lactated Ringers 1000 Ml IV 75 mls/hr .[id number] MELLISSA Administration Magnesium Sulfate 40 gm in 1,000 mls @ 50 mls/hr 03/13/24 12:30 03/13/24 12:26 Magnesium Infusion IVPB 2 gm/hr .Q20H MELLISSA 50 mls/hr Administration 2 GM/HR Discontinued Medications Generic Name Dose Route Start Last Admin Trade Name Dakotahq PRN Reason Stop Dose Admin Sodium Chloride 500 mls @ 500 mls/hr 03/13/24 10:16 03/13/24 11:30 0.9 % Sodium Chloride 500 Ml IV 03/13/24 11:15 Infused .Q1H ONE Infusion Magnesium Sulfate 4 gm in 100 mls @ 200 mls/hr 03/13/24 11:15 03/13/24 12:00 Magnesium Iv IVPB 03/13/24 11:44 Infused ONCE ONE Infusion Nifedipine 30 mg 03/13/24 12:24 03/13/24 12:26 Nifedipine 30 Mg Tab.Er.24 PO 03/13/24 12:25 30 mg ONCE ONE Administration <Clem Hodges MD - Last Filed: 03/13/24 15:17> Generic Name Dose Route Start Last Admin Trade Name Bailee PRN Reason Stop Dose Admin Lactated Ringer's 1,000 mls @ 75 mls/hr 03/13/24 11:20 03/13/24 11:32 Lactated Ringers 1000 Ml IV 75 mls/hr .[id number] MELLISSA Administration Magnesium Sulfate 40 gm in 1,000 mls @ 50 mls/hr 03/13/24 12:30 03/13/24 12:26 Magnesium Infusion IVPB 2 gm/hr .Q20H MELLISSA 50 mls/hr Administration 2 GM/HR Discontinued Medications Generic Name Dose Route Start Last Admin Trade Name Dakotahq PRN Reason Stop Dose Admin Sodium Chloride 500 mls @ 500 mls/hr 03/13/24 10:16 03/13/24 11:30 0.9 % Sodium Chloride 500 Ml IV 03/13/24 11:15 Infused .Q1H ONE Infusion Magnesium Sulfate 4 gm in 100 mls @ 200 mls/hr 03/13/24 11:15 03/13/24 12:00 Magnesium Iv IVPB 03/13/24 11:44 Infused ONCE ONE Infusion Nifedipine 30 mg 03/13/24 12:24 03/13/24 12:26 Nifedipine 30 Mg Tab.Er.24 PO 03/13/24 12:25 30 mg ONCE ONE Administration <Rosy Bright MD - Last Filed: 03/13/24 11:52> Medical Decision Making MDM Narrative Medical decision making narrative: 28-year-old female with elevated blood pressure , history of preeclampsia prior to delivery. At this point have consulted with Dr. Solorio and got excellent advice, including repeat blood pressure checks, if it is less than 160 systolic she is likely safe to proceed home if her liver function tests are continue to stay down or lower than when she discharged. Would have her continue her nifedipine and get a blood pressure check on Friday. Would review the lab studies and observe her serial blood pressures as mention. Addendum 11:12 a.m.: The patient has elevated blood pressure mildly but also despite the fact she is asymptomatic has elevated liver function tests are higher than when she was discharged. Discussed with Dr. Jose Eduardo Knutson who kindly will follow the patient hospital. We will start magnesium IV in a bolus and a drip. Will attempt to admit to the OB unit. Patient was in agreement <Clem Hodges MD - Last Filed: 03/13/24 15:17> Lab Data Labs: Lab Results 03/13/24 Range/Units 10:30 WBC 14.62 H (4.50-11.00) K/uL RBC 3.78 L (4.00-5.20) m/uL Hgb 10.5 L (12.0-16.0) gm/dL Hct 32.7 L (33.0-51.0) % MCV 87 (80-100) fL MCH 28 (26-34) pg MCHC 32 (32-36) gm/dL RDW Coeff of Bruna 14.0 (11.5-15.5) % Plt Count 346 (140-440) K/uL Neut % (Auto) 77.9 H (42.0-72.0) % Lymph % (Auto) 14.2 L (20-44) % [place] % (Auto) 4.4 (0.0-11.0) % Eos % (Auto) 2.6 (0.0-7.0) % Baso % (Auto) 0.2 (0.0-3.0) % Neut # (Auto) 11.40 H (1.7-7.0) K/uL Lymph # (Auto) 2.10 (0.90-2.90) K/uL [place] # (Auto) 0.60 (0.00-0.90) K/UL Eos # (Auto) 0.40 (0.00-0.50) K/uL Baso # (Auto) 0.00 (0.00-0.30) K/uL Abs Immat Gran (auto) 0.10 (0.00-0.30) K/uL Imm/Tot Granulo (auto) 0.7 % INR 0.87 L (0.91-1.10) APTT 27 (23-33) Seconds Fibrinogen 733 H (200-450) mg/dL Sodium 136 (135-149) mmol/L Potassium 4.3 (3.6-5.1) mmol/L Chloride 108 (96-114) mmol/L Carbon Dioxide 26 (20-32) mmol/L Anion Gap 2 L (7-15) mEq/L BUN 11 (5-24) mg/dL Creatinine 0.5 (0.5-1.5) mg/dL Estimated Creat Clear 142.07 Estimated GFR 129 ml/min Glucose 81 (60-115) mg/dL Calcium 9.2 (8.4-10.6) mg/dL Total Bilirubin 0.4 (0.1-1.5) mg/dL Direct Bilirubin 0.1 (0.0-0.5) mg/dL AST 67 H (12-35) U/L ALT 117 H (4-35) U/L Alkaline Phosphatase 127 (40-150) U/L Total Protein 7.4 (6.0-8.3) g/dL Albumin 3.6 (3.3-5.0) g/dL <Clem Hodges MD - Last Filed: 03/13/24 15:17> Lab Results 03/13/24 Range/Units 10:30 WBC 14.62 H (4.50-11.00) K/uL RBC 3.78 L (4.00-5.20) m/uL Hgb 10.5 L (12.0-16.0) gm/dL Hct 32.7 L (33.0-51.0) % MCV 87 (80-100) fL MCH 28 (26-34) pg MCHC 32 (32-36) gm/dL RDW Coeff of Bruna 14.0 (11.5-15.5) % Plt Count 346 (140-440) K/uL Neut % (Auto) 77.9 H (42.0-72.0) % Lymph % (Auto) 14.2 L (20-44) % [place] % (Auto) 4.4 (0.0-11.0) % Eos % (Auto) 2.6 (0.0-7.0) % Baso % (Auto) 0.2 (0.0-3.0) % Neut # (Auto) 11.40 H (1.7-7.0) K/uL Lymph # (Auto) 2.10 (0.90-2.90) K/uL [place] # (Auto) 0.60 (0.00-0.90) K/UL Eos # (Auto) 0.40 (0.00-0.50) K/uL Baso # (Auto) 0.00 (0.00-0.30) K/uL Abs Immat Gran (auto) 0.10 (0.00-0.30) K/uL Imm/Tot Granulo (auto) 0.7 % INR 0.87 L (0.91-1.10) APTT 27 (23-33) Seconds Fibrinogen 733 H (200-450) mg/dL Sodium 136 (135-149) mmol/L Potassium 4.3 (3.6-5.1) mmol/L Chloride 108 (96-114) mmol/L Carbon Dioxide 26 (20-32) mmol/L Anion Gap 2 L (7-15) mEq/L BUN 11 (5-24) mg/dL Creatinine 0.5 (0.5-1.5) mg/dL Estimated Creat Clear 142.07 Estimated GFR 129 ml/min Glucose 81 (60-115) mg/dL Calcium 9.2 (8.4-10.6) mg/dL Total Bilirubin 0.4 (0.1-1.5) mg/dL Direct Bilirubin 0.1 (0.0-0.5) mg/dL AST 67 H (12-35) U/L ALT 117 H (4-35) U/L Alkaline Phosphatase 127 (40-150) U/L Total Protein 7.4 (6.0-8.3) g/dL Albumin 3.6 (3.3-5.0) g/dL <Rosy Bright MD - Last Filed: 03/13/24 11:52> Discharge Plan Discharge Clinical Impression: hypertension <Clem Hodges MD - Last Filed: 03/13/24 15:17> Patient Disposition: Admitted As Observation <Clem Hodges MD - Last Filed: 03/13/24 15:17>
[2024-03-13] MEDS: 0.9 % SODIUM CHLORIDE 500 ML 500 ML IV (10:34)
[2024-03-13 10:37] LABS: Basophils Percent Auto 0.2 % (0.0-3.0); Eosinophils Percent Auto 2.6 % (0.0-7.0); Hematocrit 32.7 % (33.0-51.0); Hemoglobin* 10.5 gm/dL (12.0-16.0); Immature Granulocytes Pct Auto 0.7 %; Lymphocytes Percent Auto 14.2 % (20-44); Mean Corpuscular HGB Conc 32 gm/dL (32-36); Mean Corpuscular Hemoglobin 28 pg (26-34); Mean Corpuscular Volume 87 fL (80-100); Monocytes Percent Auto 4.4 % (0.0-11.0); Neutrophils Percent Auto 77.9 % (42.0-72.0); Platelet Count* 346 K/uL (140-440); Red Blood Count 3.78 m/uL (4.00-5.20); White Blood Count* 14.62 K/uL (4.50-11.00)
[2024-03-13 10:44] LABS: Slide Review Reflex No
[2024-03-13 10:51] LABS: Albumin* 3.6 g/dL (3.3-5.0); Chloride* 108 mmol/L (96-114)
[2024-03-13 10:52] LABS: Potassium* 4.3 mmol/L (3.6-5.1); Sodium* 136 mmol/L (135-149)
[2024-03-13 10:54] LABS: Anion Gap 2 mEq/L (7-15); Aspartate Amino Transferase* 67 U/L (12-35); Bilirubin Direct* 0.1 mg/dL (0.0-0.5); Bilirubin Total* 0.4 mg/dL (0.1-1.5); Blood Urea Nitrogen* 11 mg/dL (5-24); Carbon Dioxide* 26 mmol/L (20-32); Creatinine* 0.5 mg/dL (0.5-1.5); Est. Creatinine Clearance* 142.07; Estimated Glomerular Filt Rate 129 ml/min; Total Protein* 7.4 g/dL (6.0-8.3)
[2024-03-13 10:55] LABS: Alanine Aminotransferase* 117 U/L (4-35); Alkaline Phosphatase* 127 U/L (40-150); Calcium* 9.2 mg/dL (8.4-10.6); Glucose* 81 mg/dL (60-115)
[2024-03-13 11:12] LABS: INR 0.87 (0.91-1.10); Partial Thromboplastin Time* 27 Seconds (23-33); Prothrombin Time 12.4 Seconds
[2024-03-13 11:16] LABS: Fibrinogen* 733 mg/dL (200-450)
[2024-03-13] MEDS: MAGNESIUM IV 4 GM/100 ML PIGGYBACK IVPB (11:29)
[2024-03-13] MEDS: LACTATED RINGERS 1000 ML 1,000 ML 75 ML IV (11:32)
[2024-03-13] MEDS: MAGNESIUM Infusion 40 GM/1,000 ML IV.SOLN IVPB (12:26)
[2024-03-13] MEDS: NIFEdipine 30 MG TAB.ER.24 PO (12:26)
--- NOTE | 2024-03-13 16:58 | P.LDBA_ITS ---
Subjective History of Present Illness Time Seen by Provider: 13:30 Date Seen: 03/13/24 Narrative: Patient is being admitted to Labor and Delivery as a readmission for magnesium sulfate seizure prophylaxis and the patient to delivered on Friday03/10/2024 after induction of labor for severe preeclampsia by liver transaminases. By day 2 her liver transaminases were decreasing and she had been off of magnesium for 24 hours. She was discharged home on 10/2024 in stable condition. She called the Center this morning with a blood pressure of 190/102. Denies: Headaches, visual disturbance, right upper quadrant pain. She does have swelling but she feels that it has improved over the last 24 hours in her feet and lower legs. After being seen in the ED her blood pressures were 140s-150s/80s-90s and liver transaminases had increased from yesterday to today so she was readmitted for a 2nd course of magnesium sulfate. Specific Issues/Plans G 1 Boyfriend: Gómez - has 3 year old son H&P done by Aydee Celestin CNM on 03/01/24 1. Obesity. BMI 46.9. Hemoglobin A1c: 5.4 Recommend nutrition referral. Patient declines Anesthesia referral: ordered MD consult: Seen MD at 20 weeks Level 2 ultrasound: 11/03: completed w/ [facility]: Unremarkable however difficult view of face/heart; limited US follow-up w/ [facility] in 4 weeks, EFW 71%ile Follow up level II for missing views 12/08/22, WNL, vtx, no previa, SDP 4.4, 3 vessel cord Early GDM testing between 16 and 20 weeks: scheduled 11/10 - WNL at 87mg/dL Weekly BPP and/or NST starting at 32 weeks ([facility] recommendations) 02/15 EFW 75% BPP 07/08 M recommends Growth US at 28 (34%) and 34 weeks and once weekly testing starting at 34 weeks: planning 2. Elevated blood pressure readings at NOB, cannot exclude possibility of Chronic. Denies history of hypertension. Reports she was very anxious at this visit. No documented history of elevated BP or HTN on previous health documents available. Baseline pre E labs WNL. 3. History of anxiety and PTSD. Stable at 1st OB. States she took multiple medications in the past for anxiety but has been off of all of them for several years. Has an emotional support dog which is very helpful for her. Is not currently seeing a therapist and is not interested in doing so. 4. Asthma. Twice daily Advair Diskus. Rare albuterol use per patient. 5. Headaches, consider Reglan if needed but declines at this time 6. GBS + Recommend antibiotics in labor COVID: Not vaccinated. Recommended. Flu: declines TDAP: declined 32wk Mental Health: 02/01/2027 OB - Problem Based A/P Additional Plan (1) Gestational hypertension: Problem details: With severe features Status: Acute Plan 1. Increased nifedipine ER 30mg daily to nifedipine ER 60mg BID 2. Magnesium sulfate 4gm load followed by 2gm/hour x 24hours. 3. Likely discharge home on Friday03/15/24. OB Exam Physical Exam Vital signs: Temp Pulse Resp BP Pulse Ox O2 Del Method 98.5 F 114 H 22 115/73 96 Room Air 03/13/24 15:10 03/13/24 16:04 03/13/24 16:04 03/13/24 16:04 03/13/24 16:04 03/13/24 15:10
[2024-03-13] MEDS: ACETAMINOPHEN 500 MG TABLET 1000 MG PO (18:01)
[2024-03-13 18:31] LABS: Hematocrit 32.1 % (33.0-51.0); Hemoglobin* 10.2 gm/dL (12.0-16.0); Mean Corpuscular HGB Conc 32 gm/dL (32-36); Mean Corpuscular Hemoglobin 28 pg (26-34); Mean Corpuscular Volume 88 fL (80-100); Platelet Count* 406 K/uL (140-440); Red Blood Count 3.66 m/uL (4.00-5.20); White Blood Count* 16.13 K/uL (4.50-11.00)
[2024-03-13 18:33] LABS: Slide Review Reflex No
[2024-03-13 18:50] LABS: Alanine Aminotransferase* 124 U/L (4-35); Aspartate Amino Transferase* 65 U/L (12-35); Blood Urea Nitrogen* 9 mg/dL (5-24); Creatinine* 0.6 mg/dL (0.5-1.5); Est. Creatinine Clearance* 118.39; Estimated Glomerular Filt Rate 124 ml/min
[2024-03-14] VITALS (11 sets, daily range): BP systolic 120–138; BP diastolic 76–86; PULSE 86–104; RESP 16–20; TEMP 36.6–36.8; O2SAT 97–98
[2024-03-14 00:20] LABS: Hematocrit 30.1 % (33.0-51.0); Hemoglobin* 9.4 gm/dL (12.0-16.0); Mean Corpuscular HGB Conc 31 gm/dL (32-36); Mean Corpuscular Hemoglobin 28 pg (26-34); Mean Corpuscular Volume 88 fL (80-100); Platelet Count* 376 K/uL (140-440); Red Blood Count 3.42 m/uL (4.00-5.20); White Blood Count* 14.51 K/uL (4.50-11.00)
[2024-03-14 00:43] LABS: Slide Review Reflex No
[2024-03-14 00:53] LABS: Alanine Aminotransferase* 107 U/L (4-35); Aspartate Amino Transferase* 58 U/L (12-35); Blood Urea Nitrogen* 8 mg/dL (5-24); Creatinine* 0.5 mg/dL (0.5-1.5); Est. Creatinine Clearance* 142.07; Estimated Glomerular Filt Rate 129 ml/min
[2024-03-14] MEDS: LACTATED RINGERS 1000 ML 1,000 ML 75 ML IV (01:00)
[2024-03-14 06:28] LABS: Hematocrit 31.1 % (33.0-51.0); Hemoglobin* 9.8 gm/dL (12.0-16.0); Mean Corpuscular HGB Conc 32 gm/dL (32-36); Mean Corpuscular Hemoglobin 28 pg (26-34); Mean Corpuscular Volume 88 fL (80-100); Platelet Count* 391 K/uL (140-440); Red Blood Count 3.54 m/uL (4.00-5.20); White Blood Count* 13.24 K/uL (4.50-11.00)
[2024-03-14 06:37] LABS: Slide Review Reflex No
[2024-03-14 06:54] LABS: Alanine Aminotransferase* 99 U/L (4-35); Aspartate Amino Transferase* 49 U/L (12-35); Blood Urea Nitrogen* 7 mg/dL (5-24); Creatinine* 0.5 mg/dL (0.5-1.5); Est. Creatinine Clearance* 142.07; Estimated Glomerular Filt Rate 129 ml/min
[2024-03-14] MEDS: MAGNESIUM Infusion 40 GM/1,000 ML IV.SOLN IVPB (08:19)
[2024-03-14] MEDS: DOCUSATE SODIUM 100 MG CAPSULE PO (10:04)
[2024-03-14] MEDS: NIFEdipine 30 MG TAB.ER.24 60 MG PO ×2 (10:04→20:23)
--- NOTE | 2024-03-14 10:10 | P.DS_ITS ---
DS: Providers Provider Time Seen by Provider: 10:10 Date Seen: 03/14/24 Date of admission: 03/13/24 12:02 Primary care physician: Not a Local Provider Admitting Clinician: Rosy Bright MD Attending Physician on discharge: Rosy Bright MD DS: Diagnosis Discharge Diagnosis (1) hypertension: Status: Acute Exam Const: Vital Signs, click to edit/add: Vital Signs - 24 hr 03/13/24 10:16 03/13/24 10:30 03/13/24 10:55 Temperature Pulse Rate 74 Pulse Rate [Pulse Oximeter] 72 Respiratory Rate 16 14 Blood Pressure 151/76 H Blood Pressure [Ri ght Arm] Blood Pressure [Ri ght Upper Arm] 142/79 H Pulse Oximetry 97 99 96 Oxygen Delivery Me thod Room Air 03/13/24 11:00 03/13/24 11:05 03/13/24 11:35 Temperature Pulse Rate 71 71 Pulse Rate [Pulse Oximeter] Respiratory Rate Blood Pressure 148/83 H Blood Pressure [Ri ght Arm] Blood Pressure [Ri ght Upper Arm] Pulse Oximetry 98 97 Oxygen Delivery Me thod 03/13/24 11:37 03/13/24 11:42 03/13/24 11:47 Temperature Pulse Rate Pulse Rate [Pulse Oximeter] Respiratory Rate Blood Pressure 132/87 141/75 H 128/70 Blood Pressure [Ri ght Arm] Blood Pressure [Ri ght Upper Arm] Pulse Oximetry Oxygen Delivery Me thod 03/13/24 11:52 03/13/24 12:15 03/13/24 12:24 Temperature Pulse Rate Pulse Rate [Pulse Oximeter] 92 Respiratory Rate 17 Blood Pressure 123/75 Blood Pressure [Ri ght Arm] 135/85 Blood Pressure [Ri ght Upper Arm] Pulse Oximetry 97 97 Oxygen Delivery Me thod Room Air 03/13/24 12:39 03/13/24 12:44 03/13/24 13:11 Temperature 97.9 F Pulse Rate Pulse Rate [Pulse Oximeter] 88 89 Respiratory Rate 16 17 15 Blood Pressure Blood Pressure [Ri ght Arm] 128/79 120/82 Blood Pressure [Ri ght Upper Arm] Pulse Oximetry 97 97 96 Oxygen Delivery Me thod Room Air Room Air Room Air 03/13/24 13:41 03/13/24 15:10 03/13/24 16:04 Temperature 98.5 F Pulse Rate Pulse Rate [Pulse Oximeter] 96 101 H 114 H Respiratory Rate 16 20 22 Blood Pressure Blood Pressure [Ri ght Arm] 123/83 132/84 115/73 Blood Pressure [Ri ght Upper Arm] Pulse Oximetry 96 97 96 Oxygen Delivery Va thod Room Air Room Air 03/13/24 17:01 03/13/24 18:02 03/13/24 19:02 Temperature Pulse Rate Pulse Rate [Pulse Oximeter] 104 H 104 H 101 H Respiratory Rate 18 18 20 Blood Pressure Blood Pressure [Ri ght Arm] 123/82 124/84 122/82 Blood Pressure [Ri ght Upper Arm] Pulse Oximetry 96 97 97 [facility] 03/13/24 20:13 03/13/24 21:02 03/13/24 22:00 Temperature Pulse Rate Pulse Rate [Pulse Oximeter] 93 87 Respiratory Rate 20 16 Blood Pressure Blood Pressure [Ri ght Arm] 135/79 121/81 124/80 Blood Pressure [Ri ght Upper Arm] Pulse Oximetry Oxygen Delivery Va thod 03/13/24 22:00 03/13/24 23:00 03/13/24 23:00 Temperature 98.6 F Pulse Rate Pulse Rate [Pulse Oximeter] 87 82 82 Respiratory Rate 16 18 18 Blood Pressure Blood Pressure [Ri ght Arm] 124/80 109/72 109/72 Blood Pressure [Ri ght Upper Arm] Pulse Oximetry 98 [facility] 03/14/24 00:00 03/14/24 01:00 03/14/24 02:00 Temperature Pulse Rate Pulse Rate [Pulse Oximeter] 89 94 93 Respiratory Rate 20 18 20 Blood Pressure Blood Pressure [Ri ght Arm] 123/76 135/83 135/83 Blood Pressure [Ri ght Upper Arm] Pulse Oximetry Oxygen Delivery Va thod 03/14/24 03:00 03/14/24 03:00 03/14/24 04:00 Temperature Pulse Rate Pulse Rate [Pulse Oximeter] 104 H 104 H 96 Respiratory Rate 20 20 18 Blood Pressure Blood Pressure [Ri ght Arm] 130/83 130/83 123/82 Blood Pressure [Ri ght Upper Arm] Pulse Oximetry Oxygen Delivery Va thod 03/14/24 05:00 03/14/24 06:00 03/14/24 07:00 Temperature Pulse Rate Pulse Rate [Pulse Oximeter] 87 86 98 Respiratory Rate 16 18 20 Blood Pressure Blood Pressure [Ri ght Arm] 134/82 131/85 137/86 Blood Pressure [Ri ght Upper Arm] Pulse Oximetry Oxygen Delivery Me thod OB - DS: Summary Hospital Course Hospital Course: The patient is a 28 year old G [] P [] at [] weeks gestation that was admitted to the Center on 03/13/24 for []. She had an [uncomplicated/complicated] [vaginal/] delivery. She delivered a viable [male/female] . She is [breast/bottle] feeding. the patient has done well. Time Spent with Patient Time attestation: Total time spent providing and/or coordinating discharge services: Discharge Plan Discharge Date of Admission: 03/13/24 12:02 Attending Physician on Admission: Rosy Bright Primary Care Provider: Provider,Not a Local Discharge Medications: No Action DHA 200 mg capsule 200 mg PO DAILY Advair HFA 45-21 mcg/actuation HFA aerosol inhaler 2 puff inhalation BID albuterol sulfate 90 mcg/actuation HFA aerosol inhaler 1 inh inhalation ONCE PRN nifedipine 30 mg Tablet Extended Release 24hr 30 mg PO DAILY 30 Days Qty: 30 0RF Follow Up Appointments: Provider,Not a Local [Primary Care Provider] -
--- NOTE | 2024-03-14 10:14 | PM.OBPNVD1 ---
OB - PN:Subj Subjective Time Seen by Provider: 10: Date Seen: 03/14/24 Narrative: The patient is on hospital day 2 for admission for worsening liver transaminases in a patient with elevated blood pressure now 4 days . Her liver transaminases have started to normalize. Planning 1 more set of preeclampsia labs tomorrow morning. Was ordered for nifedipine 60 mg daily and I increased to b.i.d. today as her blood pressures overnight were almost all 130s/80s. She is tolerating regular diet, ambulating without difficulty and bottle feeding her . She denies having headaches, right upper quadrant pain and visual disturbance. She states her edema is improving. OB - PN: Obj Exam Physical Exam: Vital signs: Temp Pulse Resp BP Pulse Ox O2 Del Method 98.6 F 98 20 137/86 98 Room Air 03/13/24 23:00 03/14/24 07:00 03/14/24 07:00 03/14/24 07:00 03/13/24 23:00 03/13/24 23:00 Narrative: GENERAL APPEARANCE: Pleasant, , well-groomed woman in no acute distress. VITAL SIGNS: as noted in nursing notes HEAD: Normocephalic, atraumatic. THYROID: no masses, nodularity, tenderness or enlargement. LUNGS: Clear to auscultation bilaterally without wheezes, rales or rhonchi. HEART: Regular rate and rhythm with normal S1 and S2. No gallop, rub or murmur. ABDOMEN: Fundus firm at 2 cm below the umbilicus in the midline. Soft, nontender, nondistended, with normal bowels sounds throughout. EXTREMITIES: No cyanosis, clubbing, or varicosities. Bilateral lower extremity edema to the ankle +1: Improved. NEUROLOGIC: Normal gait and balance. Normal deep tendon reflexes at bilateral patella 2+/2, equal without clonus. PSYCHIATRIC: alert and oriented x3. Normal speech pattern, eye contact and affect. SKIN: Warm, dry, and well perfused. Good turgor. No lesions, nodules or rashes. OB - PN: Obj Data Labs Labs: Laboratory Results - last 24 hr 03/13/24 03/13/24 03/13/24 10:30 18:16 23:30 WBC 14.62 H 16.13 H RBC 3.78 L 3.66 L Hgb 10.5 L 10.2 L Hct 32.7 L 32.1 L MCV 87 88 MCH 28 28 MCHC 32 32 RDW Coeff of Bruna 14.0 Plt Count 346 406 Neut % (Auto) 77.9 H Lymph % (Auto) 14.2 L [place] % (Auto) 4.4 Eos % (Auto) 2.6 Baso % (Auto) 0.2 Neut # (Auto) 11.40 H Lymph # (Auto) 2.10 [place] # (Auto) 0.60 Eos # (Auto) 0.40 Baso # (Auto) 0.00 Abs Immat Gran (auto) 0.10 Imm/Tot Granulo (auto) 0.7 INR 0.87 L APTT 27 Fibrinogen 733 H Sodium 136 Potassium 4.3 Chloride 108 Carbon Dioxide 26 Anion Gap 2 L BUN 11 9 8 Creatinine 0.5 0.6 0.5 Estimated Creat Clear 142.07 118.39 142.07 Estimated GFR 129 124 129 Glucose 81 Calcium 9.2 Total Bilirubin 0.4 Direct Bilirubin 0.1 AST 67 H 65 H 58 H ALT 117 H 124 H 107 H Alkaline Phosphatase 127 Total Protein 7.4 Albumin 3.6 03/13/24 03/14/24 23:32 06:17 WBC 14.51 H 13.24 H RBC 3.42 L 3.54 L Hgb 9.4 L 9.8 L Hct 30.1 L 31.1 L MCV 88 88 MCH 28 28 MCHC 31 L 32 RDW Coeff of Bruna Plt Count 376 391 Neut % (Auto) Lymph % (Auto) [place] % (Auto) Eos % (Auto) Baso % (Auto) Neut # (Auto) Lymph # (Auto) [place] # (Auto) Eos # (Auto) Baso # (Auto) Abs Immat Gran (auto) Imm/Tot Granulo (auto) INR APTT Fibrinogen Sodium Potassium Chloride Carbon Dioxide Anion Gap BUN 7 Creatinine 0.5 Estimated Creat Clear 142.07 Estimated GFR 129 Glucose Calcium Total Bilirubin Direct Bilirubin AST 49 H ALT 99 H Alkaline Phosphatase Total Protein Albumin OB - PN: A/P Delivery Assessment and Plan (1) hypertension: Status: Acute Plan 1. Continue magnesium until 11:30 a.m. today. 2. Expecting discharge tomorrow morning. 3. Change nifedipine ER to 60 mg b.i.d. from daily. I thought I had ordered b.i.d. yesterday but it was ordered as daily so changed my order so would be b.i.d. today.
[2024-03-14 11:35] LABS: Hematocrit 32.7 % (33.0-51.0); Hemoglobin* 10.1 gm/dL (12.0-16.0); Mean Corpuscular HGB Conc 31 gm/dL (32-36); Mean Corpuscular Hemoglobin 27 pg (26-34); Mean Corpuscular Volume 88 fL (80-100); Platelet Count* 420 K/uL (140-440); White Blood Count* 15.06 K/uL (4.50-11.00)
[2024-03-14 11:37] LABS: Slide Review Reflex No
[2024-03-14 11:51] LABS: Alanine Aminotransferase* 95 U/L (4-35); Aspartate Amino Transferase* 50 U/L (12-35); Blood Urea Nitrogen* 6 mg/dL (5-24); Creatinine* 0.5 mg/dL (0.5-1.5); Est. Creatinine Clearance* 142.07; Estimated Glomerular Filt Rate 129 ml/min
[2024-03-14 19:43] LABS: Hemoglobin* 10.6 gm/dL (12.0-16.0); Mean Corpuscular HGB Conc 31 gm/dL (32-36); Mean Corpuscular Hemoglobin 28 pg (26-34); Mean Corpuscular Volume 89 fL (80-100); Platelet Count* 485 K/uL (140-440); Red Blood Count 3.84 m/uL (4.00-5.20); White Blood Count* 14.96 K/uL (4.50-11.00)
[2024-03-14 19:48] LABS: Slide Review Reflex No
[2024-03-14 20:03] LABS: Alanine Aminotransferase* 93 U/L (4-35); Aspartate Amino Transferase* 42 U/L (12-35); Blood Urea Nitrogen* 10 mg/dL (5-24); Creatinine* 0.7 mg/dL (0.5-1.5); Est. Creatinine Clearance* 101.48; Estimated Glomerular Filt Rate 119 ml/min
[2024-03-15 00:05] VITALS: BP 138/87; PULSE 89; RESP 16; TEMP 36.6; O2SAT 97
[2024-03-15 03:57] VITALS: BP 138/87; PULSE 108; RESP 17; TEMP 36.8
[2024-03-15 05:30] LABS: Hematocrit 31.4 % (33.0-51.0); Hemoglobin* 9.7 gm/dL (12.0-16.0); Mean Corpuscular HGB Conc 31 gm/dL (32-36); Mean Corpuscular Hemoglobin 28 pg (26-34); Mean Corpuscular Volume 89 fL (80-100); Platelet Count* 386 K/uL (140-440); Red Blood Count 3.52 m/uL (4.00-5.20); White Blood Count* 11.87 K/uL (4.50-11.00)
[2024-03-15 05:38] LABS: Slide Review Reflex No
[2024-03-15 05:41] LABS: Creatinine* 0.6 mg/dL (0.5-1.5); Est. Creatinine Clearance* 118.39; Estimated Glomerular Filt Rate 124 ml/min
[2024-03-15 05:42] LABS: Alanine Aminotransferase* 73 U/L (4-35); Aspartate Amino Transferase* 31 U/L (12-35); Blood Urea Nitrogen* 9 mg/dL (5-24)
[2024-03-15 07:40] VITALS: BP 136/88; PULSE 109; RESP 16; TEMP 36.8; O2SAT 97
[2024-03-15] MEDS: NIFEdipine 30 MG TAB.ER.24 60 MG PO (07:59)
--- NOTE | 2024-03-15 08:04 | P.DS_ITS ---
DS: Providers Provider Time Seen by Provider: 08:05 Date Seen: 03/15/24 Date of admission: 03/13/24 12:02 Primary care physician: Not a Local Provider Admitting Clinician: Rosy Bright MD Attending Physician on discharge: Rosy Bright MD Date of Discharge: 03/15/24 DS: Diagnosis Discharge Diagnosis (1) Severe preeclampsia: Status: Acute (2) (normal spontaneous vaginal delivery): Status: Acute Exam Narrative: Exam Narrative: GENERAL APPEARANCE: Pleasant, , well-groomed woman in no acute distress. VITAL SIGNS: as noted in nursing notes HEAD: Normocephalic, atraumatic. THYROID: no masses, nodularity, tenderness or enlargement. LUNGS: Clear to auscultation bilaterally without wheezes, rales or rhonchi. HEART: Regular rate and rhythm with normal S1 and S2. No gallop, rub or murmur. ABDOMEN: Fundus firm at 3 cm below the umbilicus in the midline. Soft, nontender, nondistended, with normal bowels sounds throughout. EXTREMITIES: No cyanosis, clubbing, or varicosities. Bilateral lower extremity edema to the ankle +1 NEUROLOGIC: Normal gait and balance. PSYCHIATRIC: alert and oriented x3. Normal speech pattern, eye contact and affect. SKIN: Warm, dry, and well perfused. Good turgor. No lesions, nodules or rashes. Const: Vital Signs, click to edit/add: Vital Signs - 24 hr 03/14/24 11:46 03/14/24 15:34 03/14/24 20:17 Temperature 97.8 F 98.3 F 98.3 F Pulse Rate [Pulse Oximeter] 98 96 90 Respiratory Rate 16 16 16 Blood Pressure [Ri ght Arm] 120/82 125/77 138/83 Pulse Oximetry 97 98 97 Oxygen Delivery Me thod Room Air Room Air Room Air 03/15/24 00:05 03/15/24 03:57 03/15/24 07:40 Temperature 97.9 F 98.3 F 98.3 F Pulse Rate [Pulse Oximeter] 89 108 H 109 H Respiratory Rate 16 17 16 Blood Pressure [Ri ght Arm] 138/87 138/87 136/88 Pulse Oximetry 97 97 Oxygen Delivery Me thod Room Air Room Air Room Air OB - DS: Summary Hospital Course Hospital Course: Hayley is a 28 year old G1 P 1001, PPD#5 from [facility] on 03/10/24 at 38 weeks due to severe preeclampsia based on transaminitis twice the upper limit of normal. She was discharged home on 03/12/2024 in stable condition after 24 hours of magnesium sulfate . On 03/13/2024, she called the center with a blood pressure of 190/102. She was seen in the emergency room with blood pressures 140-150s/80-90s and liver enzymes had increased. She was readmitted for a 2nd course of magnesium sulfate. Nifedipine was increased to 60 mg b.i.d.. Since then, her blood pressures have been 120s - 130s/70s - 80s. She is asymptomatic in desperate to go home. Her LFTs have been downtrending the. Currently, AST is 31 and ALT of 73. Denies any persistent headache, vision changes, SOB, right upper quadrant/epigastric pain, or rapidly expanding edema. Review preeclampsia precautions. Discussed with RN to do blood pressure teaching and blood pressure cuff calibration prior to patient's discharge. She will be seen clinic this week for blood pressure check. Time spent discussing smoking cessation with patient: 3 to 10 minutes Time Spent with Patient Time attestation: Total time spent providing and/or coordinating discharge services: Discharge Plan Discharge Disposition: Home, Self-Care Date of Admission: 03/13/24 12:02 Attending Provider on Discharge: Kenna Zhang MD Primary Care Provider: Provider,Not a Local Condition: Stable Anticipated Discharge Date/Time: 03/15/24 12:00 Discharge Medications: New nifedipine 30 mg Tablet Extended Release 24hr 60 mg PO BID 30 Days Qty: 120 0RF Continued DHA 200 mg capsule 200 mg PO DAILY Advair HFA 45-21 mcg/actuation HFA aerosol inhaler 2 puff inhalation BID albuterol sulfate 90 mcg/actuation HFA aerosol inhaler 1 inh inhalation ONCE PRN Discontinued nifedipine 30 mg Tablet Extended Release 24hr 30 mg PO DAILY 30 Days Qty: 30 0RF Discharge Orders: Discharge Order (Routine); Ordered 03/15/24 Ordered By: Kenna Zhang Patient Education: Preeclampsia During (DC) Follow Up Appointments: Provider,Not a Local [Primary Care Provider] - Forms: [employer] Info Instructions Discharge Comments: BP check within the week
[2024-03-15 10:56] VITALS: BP 124/79; PULSE 114; RESP 16; TEMP 36.8; O2SAT 97
== END 2024-03-15 12:15 | disposition home or self-care (01) | DRG 561 ==
LOC: ED 11:14 → OB 03-15 08:02
PROVIDERS: Admitting Provider Obstetrics & Gynecology; Emergency Provider Family Medicine; Visit Provider Obstetrics & Gynecology
DX: O14.15 Severe pre-eclampsia, complicating the puerperium (principal); J45.909 Unspecified asthma, uncomplicated; F41.9 Anxiety disorder, unspecified; F43.10 Post-traumatic stress disorder, unspecified
CPT/HCPCS: 36415; 80048; 80076; 82565; 84450; 84460; 84520; 85025; 85027; 85384; 85610; 85730; 94761; 99285; A9270; J3475; J7030; J7120

== ENCOUNTER 2024-04-19 13:19 | Outpatient (CLI) | payer BC, SELFPAY | END 2024-04-19 13:20 | disposition home or self-care (01) | PROVIDERS: Visit Provider Obstetrics & Gynecology | DX: Z39.2 Encounter for routine postpartum follow-up (principal) | CPT/HCPCS: 84450; 84460 ==

== ENCOUNTER 2024-05-21 14:54 | Outpatient (CLI) | payer BC, SELFPAY ==
--- NOTE | 2024-05-21 15:00 | CRLHL7_ITS ---
For Patients: As a result of the Century Cures Act, medical imaging exams and procedure reports are released immediately into your electronic medical record. You may view this report before your referring provider. If you have questions, please contact your health care provider. CLINICAL HISTORY: Abnormal uterine bleeding TECHNIQUE: 2D vega scale and color Doppler images were acquired of the pelvis using a transvaginal approach. FINDINGS: On transvaginal imaging, the uterus measures 8.2 x 3.8 x 4.5 cm. A hypoechoic solid lesion is present adjacent to the left side of the endometrium measuring 14 x 9 x 12 millimeters. Intrauterine device is present in normal position within the endometrial canal. The endometrium is not thickened. The left ovary is not visualized and the right ovary measures 3.4 x 1.9 x 2.3 cm. The right ovary demonstrates normal arterial and venous blood flow on color Doppler analysis. There are no suspicious fluid collections within the cul-de-sac. IMPRESSION: Normal position of the IUD within the endometrial canal. Endometrium is not thickened. Small uterine fibroid is present adjacent to the left side of the endometrium measuring 1.4 cm. Dictated by Raghavendra Grmaajo MD @ 05/23/2024 7:52:35 AM (Electronically Signed)
== END 2024-05-21 14:55 | disposition home or self-care (01) ==
LOC: US 14:55
PROVIDERS: Visit Provider Obstetrics & Gynecology
DX: N93.9 Abnormal uterine and vaginal bleeding, unspecified (principal); R10.2 Pelvic and perineal pain
CPT/HCPCS: 76830

== ENCOUNTER 2024-10-04 13:41 | Outpatient (CLI) | payer BC, SELFPAY ==
--- OUTSIDE RECORDS SUMMARY | 2024-10-04 13:45 | XMS_ITS ---
Author Organization [facility] Address [address] [place] [address] Care Team Providers Care Credit Operations Specialist Name Role Phone Unavailable Unavailable Unavailable Surgery Details Not on file Complications Check Surgery Details section. Procedure Estimated Blood Loss Check Surgery Details section. Procedure Findings Check Surgery Details section. Procedure Specimens Taken Check Surgery Details section.
--- OUTSIDE RECORDS SUMMARY | 2024-10-04 13:45 | XMS_ITS | Clinical Summary ---
Author Organization [facility] Address [place], [place] [address] Care Team Providers Care Assistant Tennis Coach Name Role Phone Jazmine House NP Primary Care Provider Spencer dill Allergies Active Allergy Reactions Criticality Noted Date Comments Cat Dander Hives,Other - Descri be In Comment Field 07/07/2018 Asthma issues; sneezing, itchy watery eyes Medications Medication Sig Dispensed Refills Start Date End Date Status ondansetron (ZOFRAN) 4 mg tabletIndications:Nause a and vomiting, intractability of vomiting not specified, unspecified vomiting type Take 1-2 tablets by mouth every 8 hours if needed for Nausea/Vomiting. 8 tablet 09/01/2019 Active Active Problems No known active problems Social History Tobacco Use Types Packs/Day Years Used Date Smoking Tobacco: Former Cigarettes Q uit: 12/01/2020 Smokeless Tobacco: Never Tobacco Cessation:Counseling Given: Not Answered Sex and Gender Information Value Date Recorded Sex Assigned at Not on file Gender Identity Not on file Sexual Orientation Not on file Obstetrics History Last Filed Vital Signs Vital Sign Reading Time Taken Comments Blood Pressure 135/78 06/27/2023 12:15 PM CDT Pulse 72 06/27/2023 12:15 PM CDT Temperature 36.8 ??C (98.3 ??F) 06/27/2023 1 1:48 AM CDT Respiratory Rate 20 06/27/2023 11:4 8 AM CDT Oxygen Saturation 98% 06/27/2023 12: 15 PM CDT Inhaled Oxygen Concentration - - Weight 123.7 kg (272 lb 12.8 oz) 2022 11:48 AM CDT Height 162.6 cm (5' 4) 06/27/2023 11:4 8 AM CDT Body Mass Index 46.83 06/27/2023 11:48 AM CDT Plan of Treatment Health Maintenance Due Date Last Done Comments Tdap 2004 Depression screening for age 12+ 2005 HIV for age 15-65 2008 BMI (ht and wt on same day) for age 18+ 2011 Hepatitis C screening for ag e 18-79 2011 Tetanus booster 2013 COVID-19 vaccine series (2023- season) 2024 Influenza for age 9-49 08/01/2024 Pap test for age 21-65 08/20/2026 , 08/20/2023 Pneumococcal series for age 6-64 Aged Out No longer eligible b ased on patient's age to complete this topic Procedures Procedure Name Priority Date/Time Associated Diagnosis Comments HPV HIGH RISK Routine 08/20/2023 2:30 PM CDT from Last 3 Months or Most Recently Relevant to Health Maintenance Results * HPV HIGH RISK (08/20/2023 2:30 PM CDT) TYPE 16 Negative Negative 08/26/2023 5:12 PM CDT [facility] TYPE 18 Negative Negative 08/26/2023 5:12 PM CDT [facility] OTHER HIGH RISK TYPES Negative Negative 08/26/2023 5:12 PM CDT [facility] Other (Cervical) 08/20/2023 2:30 PM CDT 08/22/2023 12:23 PM CDT Narrative [facility] - 08/26/2023 5:12 PM CDT HPV types 16, 18, 31, 33, 35, 39, 45, 51, 52, 56, 58, 59, 66 and 68 DNA were undetectable or below the pre-set threshold. Methodology: Jaquan Rohit 4800 HPV Test Amina Galvez NP MICROBIOLOGY [facility] [address] [place] [address], from Last 3 Months or Most Recently Relevant to Health Maintenance Care Teams Assistant Tennis Coach Relationship Specialty Start Date End Date Jazmine House, CUT PRESS OPERATOR PCP - General Nurse Practitioner 04/16/22
--- OUTSIDE RECORDS SUMMARY | 2024-10-04 13:45 | XMS_ITS | Referral Summary ---
Author Organization [facility] Address [address] [place] [address] Care Team Providers Care Wedding Consultant Name Role Phone Wan Haydee Parker APRN, C.N.P., M.S.N. Primary Car e Provider Source Comments Patient records contain information from all sites at [facility]. For routine questions regarding patient records, call [phone] during business hours, M-F 8:00 AM - 5:00 PM Central Time. Record requests for emergency care only can be directed to [phone] at any time.[facility] Allergies Active Allergy Reactions Criticality Noted Date Comments Cat Dander Hives (Reselect Reaction),Other (see comments) 07/07/2018 Asthma issues; sneezing, itchy watery eyes Medications albuterol (ACCUNEB) 2.5 mg /3 mL nebulizer solution Take 3 mL by nebulization 4 (four) times a day as needed. 02/04/20 17 Active loratadine (CLARITIN) 10 mg tablet Take 10 mg by mouth daily. Active docosahexaenoic acid 200 mg capsule Take 1 tablet by mouth as needed (morning sickness). 08/20/20 23 Active ondansetron ODT (ZOFRAN-ODT) 2 mg disintegrating tablet Dissolve 4 mg in the mouth as needed. 08/20/20 23 Active fluticasone propion-salmeteroL (Advair Diskus) 250-50 mcg/dose diskus inhaler Inhale 1 puff 2 (two) times a day. Rinse mouth with water after use to reduce aftertaste and incidence of candidiasis. Do not swallow. 60 each 11 09/10/20 Active albuterol 90 mcg/actuation inhaler Inhale 2 puffs every 4 (four) hours as needed for wheezing. 18 g 11 09/10/20 Active Active Problems Problem Noted Date Diagnosed Date Depression Major Recurrent Mild 03/12/2022 Body Mass Index 40.0 To 44.9 Adult 03/22/2017 Overview (04/22/2017): Body mass index (BMI) 40.0-44.9, adult Rule activated problem due to BMI 40-44 posted on 03/22 at 08:23 CDT. 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 02/10/2015 Asthma Mild Intermittent 04/20/2014 Irritable Bowel Syndrome (IBS) 01/19/2013 Resolved Problems Problem Noted Date Diagnosed Date Resolved Date Intrauterine Device Status 03/21/2015 0 07/21/2019 Immunizations Name Administration Dates Next Due 4vHPV (discontinued) 01/30/2015 DTP 1993,1993 DTaP (Infanrix, Tripedia) 05/23/1998,1993 HepB Pediatric/Adolescent 07/30/2005 Hib (PRP-T) (ACTHIB, HIBERIX) 1993, 993 MMR 07/30/2005,05/23/1998 OPV 1993 SARS-COV-2 (COVID-19) - PFIZ ER (Discontinued)(12 years or older) 03/12/2022(Deferred: Patient decision) Td Preservative Free (TENIVA C, DECAVAC) 07/30/2005 Tdap 01/30/2015 ILENE 07/30/2005 influenza trivalent vaccine (6 months and older)(PF) 03/12/2022(Deferred: Patient decision) Social History Tobacco Use Types Packs/Day Years Used Date Smoking Tobacco: Former Cigarettes 0.3 6.8 0 2011 - 03/31/2018 Smokeless Tobacco: Never Tobacco Cessation:Counseling Given: Not Answered Alcohol Use Standard Drinks/Week Comments Yes 2 (1 standard drink = 0.6 oz pur e alcohol) Humiliation, Afraid, Rape, and Kick questionnair e Answer Date Recorded Within the last year, have y ou been afraid of your partner or ex-partner? No 11/21/2021 Within the last year, have y ou been humiliated or emotionally abused in other ways by your partner or ex-partner? No Within the last year, have y ou been kicked, hit, slapped, or otherwise physically hurt by your partner or ex-partner? No 11/21/2021 Within the last year, have y ou been raped or forced to have any kind of sexual activity by your partner or ex-partner? No 11/21/2021 Social Connection and Isolat ion Panel [NHANES] Answer Date Recorded In a typical week, how many times do you talk on the phone with family, friends, or neighbors? More than three times a week 11/21/2021 How often do you get togethe r with friends or relatives? Twice a week 11/21/2021 How often do you attend [facility] or restoration services? Never 11/21/2021 Do you belong to any clubs o r organizations such as confucianism groups, unions, fraternal or athletic groups, or school groups? No 11/21/2021 How often do you attend meet ings of the clubs or organizations you belong to? Never 11/21/2021 Are you , , di vorced, , never , or living with a partner? 11/21/2021 AUDIT-C Answer Date Recorded Q1: How often do you have a drink containing alc ohol? 2-3 times a week 11/21/2021 Q2: How many drinks containi ng alcohol do you have on a typical day when you are drinking? Patient declined 11/21/2021 Q3: How often do you have si x or more drinks on one occasion? Patient declined 11/21/2021 Overall Financial Resource Strain (CARDIA) Answe r Date Recorded How hard is it for you to pa y for the very basics like food, housing, medical care, and heating? Somewhat hard 11/21/2021 PHQ-2 Answer Date Recorded PHQ-2 Score 0 09/10/2023 [facility] Occupational Stress Questionnaire Answer Date Recorded Do you feel stress - tense, restless, nervous, or anxious, or unable to sleep at night because your mind is troubled all the time - these days? Only a little 11/21/2021 Exercise Vital Sign Answer Date Recorde d On average, how many days pe r week do you engage in moderate to strenuous exercise (like a brisk walk)? 3 days 11/21/2021 On average, how many minutes do you engage in exercise at this level? 60 min 11/21/2021 Hunger Vital Sign Answer Date Recorded Within the past 12 months, y ou worried that your food would run out before you got the money to buy more. Never true Within the past 12 months, t he food you bought just didn't last and you didn't have money to get more. Sometimes true PRAPARE - Transportation Answer Date Re corded In the past 12 months, has l ack of transportation kept you from medical appointments or from getting medications? No 11/01 In the past 12 months, has l ack of transportation kept you from meetings, work, or from getting things needed for daily living? No 11/21/2021 Housing Stability Vital Sign Answer Preet e Recorded In the last 12 months, was t here a time when you were not able to pay the mortgage or rent on time? No 11/21/2021 In the last 12 months, how many places have you lived? 1 11/21/2021 In the last 12 months, was t here a time when you did not have a steady place to sleep or slept in a halfway (including now)? No 11/21/2021 Depression Answer Date Recor ded PHQ-9 Total Score (max 27) 1 09/10 Nutrition Answer Date Recorded On average, how many serving s of fruits and vegetables do you eat per day (serving size is equal to 1 cup or approximately the size of a tennis ball)? 0-1 11/21/2021 Dental Answer Date Recorded Dental: Regular Dentist No 05/17/20 21 Employment Answer Date Recorded Employment status Employed and actively working without restrictions 11/21/2021 Education Answer Date Recorded What is the highest level of school you have completed or the highest degree you have received? Associate degree: occupational, technical, or vocational program 07/20/2019 Comments Unknown Sex and Gender Information Value Date Recorded Sex Assigned at Female 11/21/2021 7:38 PM BASTING PULLER Legal Sex Female 4:13 PM BASTING PULLER Gender Identity Female 04/17/2020 9:07 PM CDT Sexual Orientation Straight 04/17/2020 9: 07 PM CDT Last Filed Vital Signs Vital Sign Reading Time Taken Comments Blood Pressure 123/85 09/10/2023 8:46 AM CDT Pulse 99 09/10/2023 8:46 AM CDT Temperature 36.3 ??C (97.3 ??F) 09/10/2023 8:46 AM CD T Respiratory Rate 20 09/10/2023 8:46 AM CDT Oxygen Saturation 100% 09/10/2023 8:46 AM CDT Inhaled Oxygen Concentration - - Weight 124 kg (274 lb 6.4 oz) 09/10/2023 8:46 AM CDT Height 162 cm (5' 3.78) 03/12/2022 11:19 AM CDT Body Mass Index 47.43 03/12/2022 11:19 AM CDT Plan of Treatment Not on file Medical Devices Explanted Type Area Project Consultant Device Identifier Shelf Expiration Date Model / Serial / Lot Intrauterine Device Explanted:08/23 (Quantity not on file) Intrauterine Device Uterus Procedures Procedure Name Priority Date/Time Associated Diagnosis Comments PATHOLOGY SENIOR DRAFTER CYTOLOGY Routine 02/12/2016 12:00 AM CDT from Last 3 Months or Most Recently Relevant to Health Maintenance Results * Pathology SENIOR DRAFTER Cytology (02/12/2016 12:00 AM CDT) 02/12/2016 Narrative [facility] LAB - 02/21/2016 9:44 AM CDT [facility] in [address] [place], [place] ??[phone] Patient Name: HAYLEY WOOD Collected: 02/12/2016 Address: [facility]/State/Zip: [address] [place] [address] [address] [place], [place] ??[id number] Received: Reported: 02/13/2016 02/21/2016 Soc. Sec. #: ?/Age/Sex 1995 (Age: 20) ??F Physician(s): JULIEN PELAYO CNP Copy To: ? [facility] ??[id number] [address] [place] [address], ??[place] ??[id number] CYTOPATHOLOGY SENIOR DRAFTER REPORT FINAL CYTOLOGIC DIAGNOSIS Pap Smear - ThinPrep with HPV: NEGATIVE FOR INTRAEPITHELIAL LESION OR MALIGNANCY ENDOCERVICAL CELLS/COMPONENT PRESENT. HISTORY OF ABNORMAL CYTOLOGY NOTED. SATISFACTORY SPECIMEN FOR EVALUATION. Electronically Signed Out By 02/21/[address](ASCP) The Pap test is a screening procedure and, as such, is subject to both false positive and false negative results as evidenced by published data. ??It is not a diagnostic test and results should be interpreted in the context of the patient's history and other clinical findings. ??Obtaining periodic Pap tests may help to minimize the consequences of any false negatives that may occur. Procedures/Addenda: HUMAN PAPILLOMA VIRUS ADDENDUM ? Date Ordered: ? 02/13/2016 ? Status: ??Signed Out Date Complete: ? 02/21/2016 ? By: ??[facility] CT(ASCP) Date Reported: ? 02/21/2016 INTERPRETATION: Test: Aptima High Risk HPV Result: NEGATIVE FOR HIGH RISK HPV Specimen Description: ThinPrep? ? ? Pap Test PreservCyt Solution HPV by Mobile Homes Repairer-Mediated Amplification (TMA) for E6/E7 viral messenger RNA (mRNA) is an in-vitro diagnostic test for the detection of 14 high-risk Human Papillomavirus (HPV) types (16, 18, 31, 33, 35, 39, 45, 51, 52, 56, 58, 59, 66, and 68) in cervical specimen. Intended for co-testing or reflex testing of ASC-US Pap smears. Interpretation for patients with ASC-US cytology: Low likelihood of underlying high-grade CIN2-3 or cancer; results are not intended to prevent women from proceeding to colposcopy. Interpretation for patients with NILM cytology who are over 30 years old: Very low likelihood of underlying high-grade KASH or cancer; results do not preclude future HPV infection or cytologic abnormalities with underlying CIN2-3 or cancer. SPECIMEN(S) RECEIVED: Pap Smear - ThinPrep with HPV CLINICAL HISTORY: Date of Last PAP: 01/30/2015 Date of Last Menstrual Period: UNKNOWN Treatment History: Colposcopy: CO-TESTIN 1 YEAR Other Clinical Conditions: HPV TYPING REQUESTED Jing Pelayo APRN, C.N.P., M.S.N. LAB PAP COPA TH ORDERABLES Final Result LC LAB from Last 3 Months or Most Recently Relevant to Health Maintenance Insurance [facility] [place] [address] Care Teams Wedding Consultant Relationship Specialty Start Date End Date Haydee Blas APRN, C.N.P., M.S.N. [address] [place] [id number] PCP - General 04/23/24
--- OUTSIDE RECORDS SUMMARY | 2024-10-04 13:45 | XMS_ITS | Clinical Summary ---
Author Organization [facility] Address [address] [place] [address] Care Team Providers Care Thread Clipper Name Role Phone SaravananLilian pinolizz VELAZCO CNM Primary Care Provider Josue Resendiz MD Unavailable [phone] Allergies No known active allergies Medications albuterol (ALBUTEROL) 108 (90 BASE) MCG/ACT inhalerIndicatio ns:Intermittent asthma Inhale 2 puffs into the lungs 4 times daily 1 Inhaler 0 04/20/2014 Active etonogestrel-eth inyl estradiol (NUVARING) 0.12-0.015 MG/24HR vaginal ringIndications: Contraception Place 1 ring every 21 days then remove for 1 week. 3 each 3 04/20/2014 Active Active Problems Problem Noted Date Diagnosed Date Intermittent asthma 04/20/2014 CARDIOVASCULAR SCREENING; LDL GOAL LESS THAN 160 04/20/2014 Immunizations Name Administration Dates Next Due HIB (PRP-T) 1993,1993 HepB 07/30/2005 Historical DTP/aP 05/23/1998,1993,10/24/19 93,1993 MMR 07/30/2005,05/23/1998 OPV, trivalent, live 1993 TD,PF 7+ (Tenivac) 07/30/2005 Varicella 07/30/2005 Family History Medical History Relation Comments Asthma Father Diabetes Father Hypertension Father Psychotic Disorder Mother Bipolar Relation Status Comments Brother Alive Father Alive Mother Alive Sister Alive Social History Tobacco Use Types Packs/Day Years Used Date Smoking Tobacco: Former Cigarettes 0.5 5 Smokeless Tobacco: Never Comments:02/12/2014 Alcohol Use Standard Drinks/Week Comments Yes 0 (1 standard drink = 0.6 oz pur e alcohol) Adolescent Education Answer Date Record ed Getting School Help Needed Not on file 10/14 Comments No Sex and Gender Information Value Date Recorded Sex Assigned at Not on file Legal Sex Female 3:26 AM CITY 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 Gender Identity Not on file Sexual Orientation Not on file Last Filed Vital Signs Vital Sign Reading Time Taken Comments Blood Pressure 124/70 04/20/2014 2:26 PM CDT Pulse 96 04/20/2014 2:26 PM CDT Temperature 36.7 ??C (98.1 ??F) 04/20/2014 2:26 PM CD T Respiratory Rate - - Oxygen Saturation 98% 04/20/2014 2:26 PM CDT Inhaled Oxygen Concentration - - Weight 98.4 kg (217 lb) 04/20/2014 2:26 PM CDT Height 162.6 cm (5' 4) 04/20/2014 2:26 PM CDT Body Mass Index 37.25 04/20/2014 2:26 PM CDT Plan of Treatment Health Maintenance Due Date Last Done Comments ADVANCE CARE PLANNING 1993 ANNUAL REVIEW OF HM ORDERS 1993 ASTHMA ACTION PLAN 1993 ASTHMA CONTROL TEST 1993 YEARLY PREVENTIVE VISIT 1993 Pneumococcal Vaccine: Pediatrics (0 to 5 Years) and At-Risk Patients (6 to 64 Years) (1 of 2 - PCV) 1999 HEPATITIS B IMMUNIZATION (2 of 3 - 3-dose series) 08/27/2005 07/30/2005, 07/30/2005 HIV SCREENING 2008 HEPATITIS C SCREENING 2011 HPV IMMUNIZATION (2 - 3-dose series) 02/27/2015 01/30/2015 PHQ-2 (once per calendar year) 2023 COVID-19 Vaccine ( - season) 2024 INFLUENZA VACCINE (#1) 2024 03/12/2022 DTAP/TDAP/TD IMMUNIZATION (6 - Td or Tdap) 01/30/2025 01/30/2015, 07/30/2005, 05/23/1998, Additional history exists PAP 08/20/2026 08/20/2023, 08/20/2023 RSV VACCINE (1 - 1-dose 75+ series) 2068 MENINGITIS IMMUNIZATION Aged Out No l onger eligible based on patient's age to complete this topic RSV MONOCLONAL ANTIBODY Aged Out No l onger eligible based on patient's age to complete this topic [place] [employer] [place] Care Teams Thread Clipper Relationship Specialty Start Date End Date Sandy Coe APRN CNM [facility] [address] [place] [address] PCP - General assignment desk editor 10/14/23 Josue Resendiz MD [phone] [id number] Assigned OBGYN Provider 11/08/23
--- OUTSIDE RECORDS SUMMARY | 2024-10-04 13:45 | XMS_ITS | Clinical Summary ---
Author Organization [facility] Address [address] [place] [address] Care Team Providers Care Hand Wood Sander Name Role Phone Wan Haydee Parker APRN, C.N.P., M.S.N. Primary Car e Provider Source Comments Patient records contain information from all sites at [facility]. For routine questions regarding patient records, call [phone] during business hours, M-F 8:00 AM - 5:00 PM Central Time. Record requests for emergency care only can be directed to [phone] at any time.[facility] Allergies Active Allergy Reactions Criticality Noted Date [...] (6 months and older)(PF) 03/12/2022(Deferred: Patient decision) Family History Medical History Relation Name Comments Anxiety disorder Father Asthma Father Clotting disorder Father Depression Father Diabetes Father at 46, com plications from diabetes Hypertension Father Pancreatitis Father Gestational diabetes Father's Sister Arthritis Maternal Grandmother grandma Melanoma Maternal Grandmother grandma Anxiety disorder Mother Depression Mother unsure of other history Gestational diabetes Mother's Sister Arthritis Paternal Grandmother Thyroid disease Paternal Grandmother Relation Name Status Comments Father Father's Sister Maternal Grandmother grandma Mother Alive Mother's Sister Paternal Grandmother Social History Tobacco Use Types Packs/Day Years [...] week 11/21/2021 How often do you attend chur or denominational services? Never 11/21/2021 Do you belong to any clubs o r organizations such as muslim groups, unions, fraternal or athletic groups, or [...] Answer Date Recorded PHQ-2 Score 0 09/10/2023 [employer] [facility] ional Health - Occupational Stress Questionnaire Answer [...] place to sleep or slept in a assisted (including now)? No 11/21/2021 Depression Answer Date Recor ded PHQ-9 Total Score (max 27) 1 09/10 Nutrition Answer Date Recorded On average, how many serving s of fruits and vegetables do you eat per day (serving size is equal to 1 cup or approximately the size of a tennis ball)? 0-1 11/21/2021 Dental Answer Date Recorded Dental: Regular Dentist No 05/17/20 Employment Answer Date Recorded Employment status Employed and actively working without restrictions 11/21/2021 Education Answer Date Recorded What is the highest level of school you have completed or the highest degree you have received? Associate degree: occupational, technical, or vocational program 07/20/2019 Comments Unknown Sex and Gender Information Value Date Recorded Sex Assigned at Female 11/21/2021 7:38 PM CONSUMER PRODUCT ADVISOR Legal Sex Female 4:13 PM CONSUMER PRODUCT ADVISOR Gender Identity Female 04/17/2020 9:07 PM CDT [...] 03/12/2022 11:19 AM CDT Plan of Treatment Health Maintenance Due Date Last Done Comments HIV Screening 1993 Hepatitis C Screening 1993 IPV Vaccines (2 of 3 - 4-dos e series) 1993 1993 Pneumococcal vaccine (0-64 y ears) (1 of 2 - PCV) 1999 Hepatitis B Vaccines (2 of 3 - 3-dose series) 08/27/2005 07/30/2005 HPV Vaccines (2 - 3-dose series) 02/27/2015 01/31/20 15 Depression Monitoring (PHQ-9 for quality tracking) 12/01/2023 Depression Monitoring (PHQ-9) 01/11/2024 09/10/2023 COVID-19 Vaccine (1 - 2023-2 5 season) 2024 Influenza Vaccine (#1) 2024 Asthma Action Plan 09/10/2024 09/10/2023, 0 03/12/2022, 09/23/2017, Additional history exists Asthma Control Test Questionnaire 09/10/2024 09/10/2023, 09/23/2017, 07/03/2017, Additional history exists Asthma Management/Exacerbati on Questionnaire (AMQ/AEQ) 09/10/2024 09/10/2023 DTaP,Tdap,and Td Vaccines (6 - Td or Tdap) 01/30/2025 01/30/2015, 07/30/2005, 05/23/1998, Additional history exists Cervical/Vaginal Cancer Screening 08/20/2026 08/20/2023, 05/24/2021 (Performed elsewhere), 10/15/2018 (Performed elsewhere), Additional history exists Medical Devices Explanted Type Area [place] Device Identifier Shelf Expiration Date Model / Serial / Lot Intrauterine Device Explanted:08/23 (Quantity not on file) Intrauterine Device Uterus Procedures Procedure Name Priority Date/Time Associated Diagnosis Comments PATHOLOGY TURN OUT WORKER CYTOLOGY Routine 02/12/2016 12:00 AM CDT from Last 3 Months or Most Recently Relevant to Health Maintenance Results * Pathology TURN OUT WORKER Cytology (02/12/2016 12:00 AM CDT) 02/12/2016 Narrative [facility] LAB - 02/21/2016 9:44 AM CDT [facility] in [address] [place], [place] ??[address] Patient Name: HAYLEY WOOD Collected: 02/12/2016 Address: [facility]/State/Zip: [address] [place] [address] [address] [place], [place] ??[phone] Received: Reported: 02/13/2016 02/21/2016 Soc. Sec. #: ?/Age/Sex 1995 (Age: 20) ??F Physician(s): JULIEN PELAYO CNP Copy To: ? [facility] ??[phone] [address] [place] [address], ??[place] ??[phone] CYTOPATHOLOGY TURN OUT WORKER REPORT FINAL CYTOLOGIC DIAGNOSIS Pap Smear - ThinPrep with HPV: NEGATIVE FOR INTRAEPITHELIAL LESION OR MALIGNANCY ENDOCERVICAL CELLS/COMPONENT PRESENT. HISTORY OF ABNORMAL CYTOLOGY NOTED. SATISFACTORY SPECIMEN FOR EVALUATION. Electronically Signed Out By 02/21/[address] [facility] [address](ASCP) The Pap test is a screening [...] Out Date Complete: ? 02/21/2016 ? By: ??[facility] CT(ASCP) Date Reported: ? 02/21/2016 INTERPRETATION: Test: Aptima High Risk HPV Result: NEGATIVE FOR HIGH RISK HPV Specimen Description: ThinPrep? ? ? Pap Test PreservCyt Solution HPV by Pickup Driver-Mediated Amplification (TMA) for E6/E7 viral messenger RNA [...] YEAR Other Clinical Conditions: HPV TYPING REQUESTED us Jing Manoj Pelayo APRN C.N.P., M.S.N. LAB PAP COPA TH ORDERABLES Final Result [facility] LAB from Last 3 Months or Most Recently Relevant to Health Maintenance Insurance [facility] Care Teams Hand Wood Sander Relationship Specialty Start Date End Date Haydee Blas APRN, C.N.P., M.S.N. [address] [place] [address] PCP - General 04/23/24
--- OUTSIDE RECORDS SUMMARY | 2024-10-04 13:45 | XMS_ITS | Referral Summary ---
Author Organization [facility] Address [address] [place] [address] Care Team Providers Care Crib Attendant Name Role Phone SaravananSandy pino JUAN A CNElena Primary Care Provider Josue Resendiz MD Unavailable [phone] Allergies No known active allergies Medications albuterol [...] 1993 TD,PF 7+ (Tenivac) 07/30/2005 Varicella 07/30/2005 Social History Tobacco Use Types Packs/Day Years [...] on file Legal Sex Female 3:26 AM STEWARD/STEWARDESS NIGHT Gender Identity Not on file Sexual Orientation [...] 04/20/2014 2:26 PM CDT Plan of Treatment Not on file Insurance Flinqer Flinqer Care Teams Crib Attendant Relationship Specialty Start Date End Date Sandy Coe APRN CNM [facility] [address] [place] [address] PCP - General security incident response engineer 10/14/23 Josue Resendiz MD [phone] [address] Assigned OBGYN Provider 11/08/23
== END 2024-10-04 13:42 | disposition home or self-care (01) ==
PROVIDERS: PCP Registered Nurse; Visit Provider Registered Nurse
DX: Z00.00 Encounter for general adult medical examination without abnormal findings (principal); E66.01 Morbid (severe) obesity due to excess calories; R73.03 Prediabetes; Z13.29 Encounter for screening for other suspected endocrine disorder
CPT/HCPCS: 80048; 84443